=== PATIENT | male | born 1940 | race Caucasian/White ===

== ENCOUNTER 2017-11-13 13:34 | Inpatient (IN) ==
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
[2017-11-13 14:44] LABS: Hematocrit 40.4 % (42.0-52.0); Hemoglobin 13.9 gm/dL (13.5-18.0); Mean Cell Volume 88.6 fl (78-100); Mean Corpuscular Hemoglobin 30.5 pg (27-31); Mean Corpuscular Hgb Conc 34.4 g/dl (32-36); Mean Platelet Volume 9.1 fl (8-11.3); Neutrophil # 6.7 K/mm3 (1.3-6.0); Neutrophil % 78.1 % (42-75.0); Platelet Count 275 K/mm3 (150-450); Red Blood Count 4.56 M/mm3 (4.7-6.0); Red Cell Distribution Width 14.1 % (11.5-14.0); White Blood Count 8.6 K/mm3 (4.0-10.5)
[2017-11-13 14:56] LABS: Prothrombin Time (Patient) 10.7 Seconds (9.0-11.0)
[2017-11-13 14:57] LABS: INR 1.07 INR (0.90-1.10); Partial Thrombolplastin Time 27.5 Seconds (24-32)
[2017-11-13 15:25] LABS: Albumin * 3.6 gm/dl (3.4-5.0); BUN/Creatinine Ratio 14.7 (9.0-21.6); Ca. Corrected For Albumin 9.5 mg/dL (8.4-10.2); Calcium * 9.5 mg/dL (7.9-10.9); Total Protein 7.6 gm/dL (6.2-8.2)
[2017-11-13 15:38] LABS: Anion Gap 15.4 mmol/L (6.8-13.8); Bilirubin, Total 0.7 mg/dL (0.0-1.1); Carbon Dioxide 24.1 mmol/L (24-32.6); Potassium 3.5 mmol/L (3.4-4.6)
--- NOTE | 2017-11-13 21:23 | HP ---
Chief Complaint - Chief Complaint Date of Service: 11/13/17 Time of Service: 21:22 Chief Complaint: 'Slurry speech'. Source of HPI- Pt unreliable, ERP report/ notes. History of Present Illness: Mr. Fuller is a 77-yr-old WM pt with a PMH of: BPH, CVA, Depression, HTN, HLD. History is limited from the pt due to difficulty with speech and no family member is present at bedside. Pt was brought to the ED apparently with complaints of slurred speech for the past 2 days. Pt is able to relay that he has felt weak and could not get out of bed this morning by himself. At the ED labwork involving CBC & BMP were mostly unremarkable. The CXR did not have any acute findings. The Head CT showed a new 12.7mm hypodense lesion within the left thalamus which had concerns for Ischemia/infarct. Pt was past the 4 hour window for TPA administration. Of-note pt was admitted to [facility] in October 2014 for RT sided weakness and was determined to have CVA in the LT thalamus. He was started on Aspirin 81 mg daily, Lisinopril 40 mg b.i.d and Crestor 10 mg daily, but according to pt's niece, he never filled these prescriptions. He was discharge to [facility] inpatient rehabilitation. Pt will be admitted for further imaging, Neurological & telemetry monitoring and to coordinate rehabilitation care. - Patient's Past Medical History Patient History - Medical: Other - BPH Patient History - Cardiac/Respiratory: CVA/Stroke, Hypertension, Hyperlipidemia Patient History - Cancer: No Hx of Cancer Patient History - Surgical Procedures: Other Patient History - Other: None - Family History Mother Family History - Medical: , No pertinent hx, Diabetes Type 2 Family History - Cardiac/Respiratory: No pertinent hx Father Family History - Medical: , Diabetes Type 2 Family History - Cardiac/Respiratory: Coronary Heart Disease, CVA/Stroke, Hypertension, Myocardial Infarction Family History - Cancer: Cervical, Lymphoma - Social History Living Situations: home Abuse History: No History of abuse Psych History: No pertinent hx Smoking Status: Never smoker Have you smoked in the past 12 months: No Do you dip or chew tobacco: No Alcohol Use: none Drug Use: none - Immunizations Immunizations Up to Date: Yes Hx Pneumococcal Vaccination: More Information Required to Determine History of Influenza Vaccine: More Information Required to Determine Review Of Systems (GEN) - Review of Systems Additional Comments: ROS unobtainable due to pt limitation with speech. Allergies/Adverse Reactions: Allergies Allergy/AdvReac Type Severity Reaction Status Date / Time No Known Allergies Allergy Verified 11/13/17 13:49 Home Medications: HOME MEDICATIONS NK [No Home Medication] 11/13/17 [Last Taken Unknown] Exam - Exam Vital Signs: Vital Signs - Last Taken Temp 36.6 C 11/13/17 19:57 Pulse 91 11/13/17 19:57 Resp 20 11/13/17 19:57 BP 120/76 11/13/17 19:57 Pulse Ox 95 11/13/17 19:57 Constitutional: Present: Alert, Oriented x3, Cooperative, No distress ENT Exam: Present: normal ENT inspection, dry mucous membranes Eye Exam: bilateral eye: normal inspection, PERRL Neck: Present: non-tender, full range of motion, supple Back Exam: Present: normal inspection, no CVA tenderness Breasts: Present: Exam deferred Respiratory: Present: chest non-tender, No rales, No wheezing Cardiovascular/Chest: Present: normal peripheral pulses, regular rate, rhythm, no chest tenderness Abdomen: Present: Normal bowel sounds, soft, nontender /Rectal: Present: Exam deferred Extremity: Present: normal range of motion, non-tender, normal inspection Skin Exam: Present: warm/dry, no cyanosis Lymphatic: Present: no adenopathy Neurologic: Present: no motor/sensory deficits, alert, normal mood/affect, oriented x 3, aphasia, facial droop - LT sided, other - Muscle strength 5/5 on BLE and BUE Appearance: Present: impaired insight Eye contact: Present: decreased rate of speech - slurred. Thoughts: Present: normal thought pattern, no apparent hallucination Diagnostic Studies: Laboratory Results WBC 8.6 K/mm3 (4.0-10.5) 11/13/17 14:40 RBC 4.56 M/mm3 (4.7-6.0) L 11/13/17 14:40 Hgb 13.9 gm/dL (13.5-18.0) 11/13/17 14:40 Hct 40.4 % (42.0-52.0) L 11/13/17 14:40 MCV 88.6 fl (78-100) 11/13/17 14:40 MCH 30.5 pg (27-31) 11/13/17 14:40 MCHC 34.4 g/dl (32-36) 11/13/17 14:40 RDW 14.1 % (11.5-14.0) H 11/13/17 14:40 Plt Count 275 K/mm3 (150-450) 11/13/17 14:40 MPV 9.1 fl (8-11.3) 11/13/17 14:40 Immature Gran % (Auto) 0.50 % (0.001-0.429) H 11/13/17 14:40 Immature Gran # (Auto) 0.04 K/mm3 (0.000-0.0310) H 11/13/17 14:40 Neutrophils % 78.1 % (42-75.0) H 11/13/17 14:40 Lymphocytes % 12.9 % (20-51) L 11/13/17 14:40 Monocytes % 8.3 % (0.0-9) 11/13/17 14:40 Eosinophils % 0.0 % (0.0-3.0) 11/13/17 14:40 Basophils % 0.2 % (0.0-1.0) 11/13/17 14:40 Nucleated RBC % 0.0 k/mm3 (0-1) 11/13/17 14:40 Neutrophils # 6.7 K/mm3 (1.3-6.0) H 11/13/17 14:40 Lymphocytes # 1.11 k/mm3 (1.5-3.5) L 11/13/17 14:40 Monocytes # 0.7 k/mm3 (0.0-1.0) 11/13/17 14:40 Eosinophils # 0.0 k/mm3 (0.0-0.7) 11/13/17 14:40 Absolute Basophils 0.0 k/mm3 (0.0-0.1) 11/13/17 14:40 ESR 29 mm/hr (0-10) H 11/13/17 14:40 PT 10.7 Seconds (9.0-11.0) 11/13/17 14:40 INR (Anticoag Therapy) 1.07 INR (0.90-1.10) 11/13/17 14:40 PTT (Isaias) 27.5 Seconds (24-32) 11/13/17 14:40 Sodium 141 mmol/L (132-142) 11/13/17 14:40 Plasma Sodium 141 mmol/L (130-142) 11/13/17 14:40 Potassium 3.5 mmol/L (3.4-4.6) 11/13/17 14:40 Chloride 105 mmol/L (97-106) 11/13/17 14:40 Carbon Dioxide 24.1 mmol/L (24-32.6) 11/13/17 14:40 Anion Gap 15.4 mmol/L (6.8-13.8) H 11/13/17 14:40 BUN 15 mg/dL (6-23) 11/13/17 14:40 Creatinine 1.02 mg/dL (0.4-1.4) 11/13/17 14:40 Est GFR (Non-Af Amer) 75 mL/min (60-130) 11/13/17 14:40 BUN/Creatinine Ratio 14.7 (9.0-21.6) 11/13/17 14:40 Random Glucose 80 mg/dL (70-110) 11/13/17 14:40 Calcium 9.5 mg/dL (7.9-10.9) 11/13/17 14:40 Calcium Adj for Albumin 9.5 mg/dL (8.4-10.2) 11/13/17 14:40 Magnesium 2.0 mg/dL (1.2-2.8) 11/13/17 14:40 Total Bilirubin 0.7 mg/dL (0.0-1.1) 11/13/17 14:40 AST 51 U/L (0-48) H 11/13/17 14:40 ALT 29 U/L (19-67) 11/13/17 14:40 Alkaline Phosphatase 83 U/L (50-170) 11/13/17 14:40 Total Protein 7.6 gm/dL (6.2-8.2) 11/13/17 14:40 Albumin 3.6 gm/dl (3.4-5.0) 11/13/17 14:40 Assessment/Plan - Assessment/Plan (1) CVA (cerebral vascular accident) Assessment: Pt is a 77-yr-old WM who presented with neurological deficit involving weakness and slurry speech. On exam, he has RT side facial drooping. The head CT showed a new 12.7mm hypodense lesion within the left thalamus which had concerns for Ischemia/infarct. He could not get treatment with TPA due to symptom onset that was already outside the 4 hour window. He will need additional imaging to define etiology of the stroke with MRA, Carotid US and echocardiogram. He will remain on telemetry monitoring to determine if arrhythmia such as A -fib was contributory. Will hold off antihypertensives unless he SBP> 220 or DPB> 120. He will need formal swallowing evaluation prior to oral intake, encourage early mobilization and also needs supported discharge planning with rehabilitation goals - consult PT/OT, case mgt will assist with placement finding. Problem: Acute Qualifiers: CVA mechanism: unspecified Qualified Code(s): I63.9 - Cerebral infarction, unspecified (2) Poor compliance with medication Assessment: Pt has reportedly not been taking his medications. Problem: Acute (3) HTN (hypertension) Problem: Chronic Qualifiers: Hypertension type: essential hypertension Qualified Code(s): I10 - Essential (primary) hypertension (4) Depression Problem: Chronic (5) HLD (hyperlipidemia) Problem: Chronic
[2017-11-14 02:49] LABS: Urine Bilirubin Negative (NEGATIVE); Urine Blood Negative /ul (NEGATIVE); Urine Ketone 15 mg/dL (NEGATIVE); Urine Nitrite Negative (NEGATIVE); Urine Protein Negative (NEGATIVE); Urine Urobilinogen Normal (NORMAL)
[2017-11-14 02:55] LABS: Urine Appearance Clear (CLEAR); Urine Color Dark Yellow
[2017-11-14 02:56] LABS: Urine Bacteria TRACE; Urine RBC None Seen /hpf (0-5); Urine WBC None Seen /hpf (0-5)
--- NOTE | 2017-11-14 06:20 | PN ---
Subjective - Date and Time Seen Date: 11/14/17 Time: 06:16 Subjective Narrative: Pt seen this morning. Slurred speech still persist and noted to have LT sided facial drooping and LT hand weakness. No other acute events overnight. Objective - Vitals Vitals: Last Vital Signs Temp 37.0 C 11/13/17 23:34 Pulse 79 11/14/17 02:00 Resp 20 11/13/17 23:34 BP 160/82 11/13/17 23:34 Pulse Ox 94 11/13/17 23:34 - Exam Constitutional: Present: Alert, Oriented x3, Cooperative, No distress ENT Exam: Present: normal ENT inspection, hard of hearing Neck: Present: non-tender, full range of motion, supple Breasts: Present: Exam deferred Respiratory: Present: No rales, No wheezing Cardiovascular/Chest: Present: normal peripheral pulses, regular rate, rhythm, no chest tenderness Abdomen: Present: Normal bowel sounds, soft, nontender /Rectal: Present: Exam deferred Extremity: Present: normal range of motion, non-tender, normal inspection Skin Exam: Present: warm/dry, no cyanosis Lymphatic: Present: no adenopathy Neurologic: Present: no motor/sensory deficits, alert, oriented x 3, aphasia, facial droop - lt sided, other - muscle strength LUE- 3/5, and RUE -5/5 Appearance: Present: appropriate appearance Eye contact: Present: cooperative, good eye contact, decreased rate of speech Thoughts: Present: no apparent hallucination Assessment/Plan - Problems/Diagnosis (1) CVA (cerebral vascular accident) Problem: Acute Qualifiers: CVA mechanism: unspecified Qualified Code(s): I63.9 - Cerebral infarction, unspecified Narrative: Pt is a 77-yr-old WM who presented with neurological deficit involving weakness and slurry speech. On exam, he has RT side facial drooping. The head CT showed a new 12.7mm hypodense lesion within the left thalamus which had concerns for Ischemia/infarct. He could not get treatment with TPA due to symptom onset that was already outside the 4 hour window. He will need additional imaging to define etiology of the stroke with MRA, Carotid US and echocardiogram. He will remain on telemetry monitoring to determine if arrhythmia such as A -fib was contributory. Will hold off antihypertensives unless he SBP> 220 or DPB> 120. He will need formal swallowing evaluation prior to oral intake, encourage early mobilization and also needs supported discharge planning with rehabilitation goals - consult PT/OT, case mgt will assist with placement finding. (2) Poor compliance with medication Problem: Acute Narrative: Pt has reportedly not been taking his medications. (3) HTN (hypertension) Problem: Chronic Qualifiers: Hypertension type: essential hypertension Qualified Code(s): I10 - Essential (primary) hypertension (4) Depression Problem: Chronic (5) HLD (hyperlipidemia) Problem: Chronic
[2017-11-14] MEDS: ENOXAPARIN SODIUM 40 MG/0.4 ML SYRG SC SCH (13:38)
[2017-11-14] MEDS: ASPIRIN 325 MG TABLET.DR PO SCH (13:38)
[2017-11-14] MEDS: LISINOPRIL 10 MG TABLET PO SCH (13:39)
[2017-11-14] MEDS ORDERED: ROSUVASTATIN CALCIUM 10 MG TABLET PO SCH (21:00)
--- NOTE | 2017-11-15 05:20 | PN ---
Subjective - Date and Time Seen Date: 11/15/17 Time: 05:13 Subjective Narrative: Pt seen this am. No issues overnight according to nursing. Seen and eval by ST.PT/OT. Awaiting on rehabilitation placement. Objective - Vitals Vitals: Last Vital Signs Temp 37.2 C 11/14/17 21:00 Pulse 72 11/14/17 21:58 Resp 20 11/14/17 21:00 BP 147/82 11/14/17 21:00 Pulse Ox 97 11/14/17 21:00 - Exam Constitutional: Present: Alert, Oriented x3, Cooperative, No distress ENT Exam: Present: normal ENT inspection, hard of hearing Neck: Present: non-tender, full range of motion, supple Breasts: Present: Exam deferred Respiratory: Present: No rales, No wheezing Cardiovascular/Chest: Present: normal peripheral pulses, regular rate, rhythm, no murmur Abdomen: Present: Normal bowel sounds, soft, nontender /Rectal: Present: Exam deferred Extremity: Present: normal range of motion, non-tender, normal inspection, other - lt side weakness Skin Exam: Present: warm/dry, no cyanosis Lymphatic: Present: no adenopathy Neurologic: Present: alert, aphasia, facial droop - LT side Appearance: Present: appropriate appearance Eye contact: Present: cooperative, good eye contact, decreased rate of speech Thoughts: Present: no apparent hallucination Assessment/Plan - Problems/Diagnosis (1) CVA (cerebral vascular accident) Problem: Acute Qualifiers: CVA mechanism: unspecified Qualified Code(s): I63.9 - Cerebral infarction, unspecified Narrative: 11/13 Pt is a 77-yr-old WM who presented with neurological deficit involving weakness and slurry speech. On exam, he has RT side facial drooping. The head CT showed a new 12.7mm hypodense lesion within the left thalamus which had concerns for Ischemia/infarct. He could not get treatment with TPA due to symptom onset that was already outside the 4 hour window. He will need additional imaging to define etiology of the stroke with MRA, Carotid US and echocardiogram. He will remain on telemetry monitoring to determine if arrhythmia such as A -fib was contributory. Will hold off antihypertensives unless he SBP> 220 or DPB> 120. He will need formal swallowing evaluation prior to oral intake, encourage early mobilization and also needs supported discharge planning with rehabilitation goals - consult PT/OT, case mgt will assist with placement finding. 11/14 MRI Brain results--> Acute lacunar infarct on RT side of connie and chronic lacunar infarct within the LT thalamus. Carotid Duplex --> Mild bilateral carotid plaque. Speech Therapy evaluation: Dysphagia diet recommended with [facility]. soft and nectar thick liquids PT/OT- Will need continued rehabilitation to work on mobility and independence, Pt will be started on Aspirin 325 mg daily, Lisinopril 10 mg, and Crestor.- Pt refusing crestor. will be started on Artorvastatin at discharge. (2) Poor compliance with medication Problem: Acute (3) HTN (hypertension) Problem: Chronic Qualifiers: Hypertension type: essential hypertension Qualified Code(s): I10 - Essential (primary) hypertension (4) Depression Problem: Chronic (5) HLD (hyperlipidemia) Problem: Chronic
[2017-11-15] MEDS: LISINOPRIL 10 MG TABLET PO SCH (08:19)
[2017-11-15] MEDS: ASPIRIN 325 MG TABLET.DR PO SCH (08:20)
[2017-11-15] MEDS: ENOXAPARIN SODIUM 40 MG/0.4 ML SYRG SC SCH (11:25)
--- NOTE | 2017-11-16 05:06 | PN ---
Subjective - Date and Time Seen Date: 11/16/17 Time: 05:05 Subjective Narrative: Pt examined this am. He has no complaints. No acute events overnight according to nursing. Awaiting on placement. Objective - Vitals Vitals: Last Vital Signs Temp 37.0 C 11/15/17 22:11 Pulse 69 11/15/17 22:11 Resp 16 11/15/17 22:11 BP 164/81 11/15/17 22:11 Pulse Ox 96 11/15/17 22:11 - Exam Constitutional: Present: Alert, Oriented x3, Cooperative, No distress ENT Exam: Present: normal ENT inspection, hard of hearing Neck: Present: non-tender, full range of motion, supple Breasts: Present: Exam deferred Respiratory: Present: lungs clear Cardiovascular/Chest: Present: normal peripheral pulses, regular rate, rhythm Abdomen: Present: Normal bowel sounds, soft, nontender /Rectal: Present: Exam deferred Extremity: Present: other - LT side weakness Skin Exam: Present: warm/dry, no cyanosis Neurologic: Present: alert, aphasia, facial droop Appearance: Present: appropriate appearance, appropriate insight Eye contact: Present: cooperative, good eye contact, decreased rate of speech Thoughts: Present: no apparent hallucination Assessment/Plan - Problems/Diagnosis (1) CVA (cerebral vascular accident) Problem: Acute Qualifiers: CVA mechanism: unspecified Qualified Code(s): I63.9 - Cerebral infarction, unspecified Narrative: 11/13 Pt is a 77-yr-old WM who presented with neurological deficit involving weakness and slurry speech. On exam, he has RT side facial drooping. The head CT showed a new 12.7mm hypodense lesion within the left thalamus which had concerns for Ischemia/infarct. He could not get treatment with TPA due to symptom onset that was already outside the 4 hour window. He will need additional imaging to define etiology of the stroke with MRA, Carotid US and echocardiogram. He will remain on telemetry monitoring to determine if arrhythmia such as A -fib was contributory. Will hold off antihypertensives unless he SBP> 220 or DPB> 120. He will need formal swallowing evaluation prior to oral intake, encourage early mobilization and also needs supported discharge planning with rehabilitation goals - consult PT/OT, case mgt will assist with placement finding. 11/14 MRI Brain results--> Acute lacunar infarct on RT side of connie and chronic lacunar infarct within the LT thalamus. Carotid Duplex --> Mild bilateral carotid plaque. Speech Therapy evaluation: Dysphagia diet recommended with [facility]. soft and nectar thick liquids PT/OT- Will need continued rehabilitation to work on mobility and independence, Pt will be started on Aspirin 325 mg daily, Lisinopril 10 mg, and Crestor.- Pt refusing crestor. will be started on Artorvastatin at discharge. (2) Poor compliance with medication Problem: Acute (3) HTN (hypertension) Problem: Chronic Qualifiers: Hypertension type: essential hypertension Qualified Code(s): I10 - Essential (primary) hypertension (4) Depression Problem: Chronic (5) HLD (hyperlipidemia) Problem: Chronic
[2017-11-16] MEDS: ASPIRIN 325 MG TABLET.DR PO SCH (08:29)
[2017-11-16] MEDS: LISINOPRIL 10 MG TABLET PO SCH (08:29)
[2017-11-16] MEDS: POLYETHYLENE GLYCOL 3350 119 GM BTL PO SCH (08:35)
[2017-11-16] MEDS: ENOXAPARIN SODIUM 40 MG/0.4 ML SYRG SC SCH (12:05)
--- NOTE | 2017-11-17 05:12 | PN ---
Subjective - Date and Time Seen Date: 11/17/17 Time: 05:12 Subjective Narrative: Pt examined this am. No complaints. No acute events overnight. Awaiting on placement. Objective - Vitals Vitals: Last Vital Signs Temp 36.8 C 11/16/17 21:00 Pulse 82 11/16/17 21:00 Resp 18 11/16/17 21:00 BP 154/83 11/16/17 21:00 Pulse Ox 97 11/16/17 21:00 - Exam Constitutional: Present: Alert, Oriented x3, No distress ENT Exam: Present: normal ENT inspection Neck: Present: non-tender, full range of motion, supple Breasts: Present: Exam deferred Respiratory: Present: No rales, No wheezing Cardiovascular/Chest: Present: normal peripheral pulses, regular rate, rhythm, no chest tenderness Abdomen: Present: Normal bowel sounds, soft, nontender /Rectal: Present: Exam deferred Extremity: Present: normal range of motion, non-tender, normal inspection, other - lt side weakness Skin Exam: Present: warm/dry Lymphatic: Present: no adenopathy Neurologic: Present: alert, oriented x 3, aphasia, facial droop Appearance: Present: appropriate appearance, appropriate insight Eye contact: Present: cooperative, good eye contact, decreased rate of speech Thoughts: Present: no apparent hallucination Assessment/Plan - Problems/Diagnosis (1) CVA (cerebral vascular accident) Problem: Acute Qualifiers: CVA mechanism: unspecified Qualified Code(s): I63.9 - Cerebral infarction, unspecified Narrative: 11/13 Pt is a 77-yr-old WM who presented with neurological deficit involving weakness and slurry speech. On exam, he has RT side facial drooping. The head CT showed a new 12.7mm hypodense lesion within the left thalamus which had concerns for Ischemia/infarct. He could not get treatment with TPA due to symptom onset that was already outside the 4 hour window. He will need additional imaging to define etiology of the stroke with MRA, Carotid US and echocardiogram. He will remain on telemetry monitoring to determine if arrhythmia such as A -fib was contributory. Will hold off antihypertensives unless he SBP> 220 or DPB> 120. He will need formal swallowing evaluation prior to oral intake, encourage early mobilization and also needs supported discharge planning with rehabilitation goals - consult PT/OT, case mgt will assist with placement finding. 11/14 MRI Brain results--> Acute lacunar infarct on RT side of connie and chronic lacunar infarct within the LT thalamus. Carotid Duplex --> Mild bilateral carotid plaque. Speech Therapy evaluation: Dysphagia diet recommended with [facility] [place] [facility]. soft and nectar thick liquids PT/OT- Will need continued rehabilitation to work on mobility and independence, Pt will be started on Aspirin 325 mg daily, Lisinopril 10 mg, and Crestor.- Pt refusing crestor. will be started on Artorvastatin at discharge. (2) Poor compliance with medication Problem: Acute (3) HTN (hypertension) Problem: Chronic Qualifiers: Hypertension type: essential hypertension Qualified Code(s): I10 - Essential (primary) hypertension (4) Depression Problem: Chronic (5) HLD (hyperlipidemia) Problem: Chronic
[2017-11-17] MEDS: POLYETHYLENE GLYCOL 3350 119 GM BTL PO SCH (09:03)
[2017-11-17] MEDS: ASPIRIN 325 MG TABLET.DR PO SCH (09:03)
[2017-11-17] MEDS: LISINOPRIL 10 MG TABLET PO SCH (09:04)
--- NOTE | 2017-11-17 09:23 | DS ---
(1) Ischemic stroke Problem: Acute Description of Stay: ADMISSION DATE: 11/13/2017 DISCHARGE DATE: 11/17/2017 ADMISSION HPI by LALI Sifuentes: Mr. Fuller is a 77-yr-old WM pt with a PMH of: BPH, CVA, Depression, HTN, HLD. History is limited from the pt due to difficulty with speech and no family member is present at bedside. Pt was brought to the ED apparently with complaints of slurred speech for the past 2 days. Pt is able to relay that he has felt weak and could not get out of bed this morning by himself. At the ED labwork involving CBC & BMP were mostly unremarkable. The CXR did not have any acute findings. The Head CT showed a new 12.7mm hypodense lesion within the left thalamus which had concerns for Ischemia/infarct. Pt was past the 4 hour window for TPA administration. Of-note pt was admitted to [facility] in October 2014 for RT sided weakness and was determined to have CVA in the LT thalamus. He was started on Aspirin 81 mg daily, Lisinopril 40 mg b.i.d and Crestor 10 mg daily, but according to pt's niece, he never filled these prescriptions. He was discharge to [facility] inpatient rehabilitation. Pt will be admitted for further imaging, Neurological & telemetry monitoring and to coordinate rehabilitation care. HOSPITAL COURSE: The patient was admitted to the hospital for an acute/subacute ischemic stroke involving the right side of the connie. The patient continues to have residual deficits including dysphagia, facial droop and left upper and lower extremity weakness. The patient was evaluated by speech therapy with recommendations for a mechanical soft diet with nectar thick liquids. Overall, the patients admission was uneventful and he will be discharged to a SNF for ongoing therapies. FOLLOW-UP APPOINTMENTS: -Dr. Nation will follow-up with the patient at [facility] within the next 2 weeks -Outpatient referral to [facility] for a right AFO NEW OR CHANGED MEDICATIONS: -Aspirin 325mg PO daily -Atorvastatin 20mg PO QHS -Lisinopril 10mg PO daily DISCONTINUED MEDICATIONS: -None RADIOLOGY REPORTS: Single view chest x-ray on 11/13/2017: Hypoventilatory changes. No focal acute finding. CT head without contrast on 11/13/2017: There is a new 12.7 mm hypodense lesion within the left thalamus/posterior limb of the left internal capsule. Consider potential area of ischemia/infarct, age indeterminate. B chronic but consider acute versus subacute infarct. Consider follow-up by MRI of the brain. No evidence for intracranial hemorrhage or mass effect. MRI of the brain with and without contrast on 11/14/2017: 1. Mild cortical atrophy with moderate ischemic small vessel disease 2. Small amount of chronic ischemia within the mid right periventricular white matter. 3. Chronic lacunar infarct within the posterior left basal ganglia/thalamus. 4. Acute lacunar infarct along the right side of the connie. There is an additional small chronic lacunar infarct in the middle of the connie at this level. Bilateral carotid duplex ultrasound on 11/14/2017: Mild bilateral carotid plaque without evidence for hemodynamic significant stenosis. Normal antegrade flow in the vertebral arteries. Procedures Performed: none Discharge Location: [facility] Disposition: SNF Condition: Stable Level of Care: SNF Discharge Activity: Activity as tolerated Discharge Diet: Mech soft, Other - mechanical soft diet with nectar thick liquids [facility] Therapy: Physicial Therapy, Occupation Therapy, Speech Therapy Referrals: Wenceslao Lawson MD [Primary Care Provider] - Additional Patient Instructions (free text): -Dr. Nation will follow-up with the patient at [facility] within the next 2 weeks -Outpatient referral to [facility] for a right AFO Prescriptions (Any new or edited meds): Aspirin [Aspirin Enteric Coated] 325 mg PO DAILY #30 tablet. Atorvastatin Calcium 20 mg PO HS #30 tablet Lisinopril [Zestril] 10 mg PO DAILY #30 tablet Complete Home Medications List: Complete Home Medication List: Aspirin [Aspirin Enteric Coated] 325 mg PO DAILY #30 tablet. 11/17/17 Atorvastatin Calcium 20 mg PO HS #30 tablet 11/17/17 Lisinopril [Zestril] 10 mg PO DAILY #30 tablet 11/17/17
[2017-11-17 11:22] VITALS: BP 159/85
== END 2017-11-17 11:30 | DRG 65 ==
LOC: ER 13:34 → MS 15:02 → OBSVTOIN 15:29
PROVIDERS: ADMIT Internal Medicine; ATTEND Internal Medicine
DX: I10 Essential (primary) hypertension; E78.5 Hyperlipidemia, unspecified; R29.810 Facial weakness; I63.9 Cerebral infarction, unspecified; G81.94 Hemiplegia, unspecified affecting left nondominant side; R13.10 Dysphagia, unspecified; N40.0 Benign prostatic hyperplasia without lower urinary tract symptoms
CPT/HCPCS: 36415; 70450; 70553; 71010; 71045; 80053; 81001; 83735; 85025; 85610; 85652; 85730; 92610; 93005; 93880; 97110; 97116; 97161; 97166; 97535; 99283

== ENCOUNTER 2018-01-07 15:51 | Observation (INO) ==
[2018-01-07 16:39] LABS: Hematocrit 39.9 % (42.0-52.0); Hemoglobin 13.5 gm/dL (13.5-18.0); Mean Cell Volume 90.7 fl (78-100); Mean Corpuscular Hemoglobin 30.7 pg (27-31); Mean Corpuscular Hgb Conc 33.8 g/dl (32-36); Mean Platelet Volume 8.9 fl (8-11.3); Neutrophil # 3.7 K/mm3 (1.3-6.0); Neutrophil % 62.5 % (42-75.0); Platelet Count 254 K/mm3 (150-450); Red Cell Distribution Width 14.6 % (11.5-14.0)
--- NOTE | 2018-01-07 16:40 | ERNOTE ---
Medical Problem HPI - General Chief Complaint: General Assessment Time Seen by Provider: 01/07/18 15:51 Source: patient, EMS Exam Limitations: clinical condition - Immun/Allergies/Home Medications Immunizations: IMMUNIZATION HX Immunizations Up to Date Yes History of Influenza Vaccine No Hx Pneumococcal Vaccination No Allergies/Adverse Reactions: Allergies poison sumac extract Allergy (Unknown, Verified 01/07/18 16:02) RASH Home Medications: HOME MEDICATIONS Aspirin [Aspirin Enteric Coated] 325 mg PO DAILY #30 tablet. 11/17/17 [Last Taken Unknown] sertraline 50 mg tablet 50 mg PO DAILY #30 tab 12/22/17 [Last Taken Unknown] Atorvastatin Calcium 40 mg PO HS 01/07/18 [Last Taken Unknown] Lisinopril [Zestril] 10 mg PO DAILY 01/07/18 [Last Taken Unknown] - History of Present History Narrative: Patient states that he had a stroke six years ago and another one before that . He never completely recovered from the stroke, walks some with his walker. Except for slightly increased generalized weakness he denies any new symptoms, no vision changes, slightly slurred speech at baseline. Apparently the family was concerned about another stroke wit increased weakness since yesterday morning Review of Systems - Review of Systems Constitutional: Absent: recent illness, fever EYE: Absent: vision changes ENT: Present: no symptoms reported Respiratory: Absent: shortness of breath Cardiology: Absent: chest pain Gastrointestinal/Abdominal: Absent: nausea, abdominal pain Genitourinary: Present: no symptoms reported Neurological: Present: See HPI. Absent: headache Medical History (Last Reviewed 01/07/18 @ 16:45 by Gypsy Feliciano MD) BPH with urinary obstruction Onset Date: Unknown CVA (cerebral vascular accident) Onset Date: ~2017 Depression Onset Date: Unknown Hearing loss Onset Date: Unknown Hyperlipidemia Onset Date: Unknown Hypertension Onset Date: Unknown Surgical History: Surgical History (Last Reviewed 01/07/18 @ 16:45 by Gypsy Feliciano MD) Colonoscopy planned Onset Date: ~2010 History of cataract surgery Onset Date: ~2013 Lipoma Onset Date: ~1973 Family History: Family History (Last Updated 12/24/17 @ 16:51 by Adamaris Gee RN) Father Myocardial infarction Prostate disease Mother Cancer Glaucoma Social History: Preferred Language Vincentian Do you have any methodist or No cultural preference? Smoking Status Never smoker Have you smoked in the past 12 No months Do you dip or chew tobacco No Abuse History No History of abuse Psych History No pertinent hx Alcohol Use none Drug Use none Physical Exam - Physical Exam General Appearance: Present: wd/wn, alert, no apparent distress Head Exam: Present: normal inspection Eye Exam: Normal inspection: bilateral, PERRL: bilateral, EOMI: bilateral Ears, Nose, Throat: Present: normal ENT inspection, normal pharynx Respiratory: Present: no respiratory distress, normal breath sounds, lungs clear Cardiovascular/Chest: Present: regular rate, rhythm, no murmur Gastrointestinal/Abdominal: Present: nontender, nondistended Extremity Exam: Present: no edema Neurological Exam: Present: alert, oriented, normal mood/affect, no motor/ sensory deficits, youth care professional II-XII nml as tested - except left facial droop, normal cerebellar test - minimal intension tremor Skin Exam: Present: normal color, warm/dry ED Progress - Results and Orders Patient's Lab Results:: I have reviewed the patient's lab results. - Vital Signs Patient's Vital Signs:: I have reviewed the patient's vital signs. Vital Signs: Vital Signs 01/07/18 15:55 Temperature 37.6 C Pulse Rate 76 Respiratory Rate 22 H Blood Pressure 176/93 H O2 Sat by Pulse Oximetry 97 - X-Ray X-Ray #1 X-Ray: chest - no acute changes Interpretation: Reviewed by me - CT/Ultrasound CT/Ultrasound Narrative: CT head: atrophy, no acute changes - Progress/Reassessment Chief Complaint: General Assessment Progress Note-Subjective: 01/07/18 17:01 discussed test results with patient, alert and comfortable 01/07/18 17:10 discussed with brother and [id number], patient was in rehab at [facility] until two weeks ago, has been doing well with home health and home PT, family is stopping by frequently and helping with laundry and shopping, noticed significant decline the last couple of days, unable to trasnfer and get around by himself 01/07/18 17:30 patient unable to stand safely, able to walk a couple of steps only with two people assist will admit for evaluation and placement, patient agrees to plan family updated 01/07/18 17:[address] Azevedo 01/07/18 18:08 discussed with lalita Cardoso to admit for observation for generalized weakness Departure Clinical Impression: Weakness due to cerebrovascular accident - Departure Disposition: Still a patient Condition: Stable
[2018-01-07 16:46] LABS: Prothrombin Time (Patient) 10.9 Seconds (9.0-11.0)
[2018-01-07 16:47] LABS: INR 1.09 INR (0.90-1.10); Partial Thrombolplastin Time 24.7 Seconds (24-32)
[2018-01-07 16:51] LABS: Albumin * 3.7 gm/dl (3.4-5.0); Anion Gap 12.3 mmol/L (6.8-13.8); BUN/Creatinine Ratio 13.5 (9.0-21.6); Bilirubin, Total 0.3 mg/dL (0.0-1.1); Ca. Corrected For Albumin 9.6 mg/dL (8.4-10.2); Calcium * 9.7 mg/dL (7.9-10.9); Carbon Dioxide 25.5 mmol/L (24-32.6); Potassium 3.8 mmol/L (3.4-4.6); Total Protein 7.8 gm/dL (6.2-8.2)
[2018-01-07 17:34] LABS: Urine Bilirubin Negative (NEGATIVE); Urine Blood Negative /ul (NEGATIVE); Urine Ketone Negative (NEGATIVE); Urine Nitrite Negative (NEGATIVE); Urine Protein Negative (NEGATIVE); Urine Specific Gravity <=1.005 SP.GR. (1.005-1.030); Urine Urobilinogen Normal (NORMAL); Urine pH 5.5 pH (5.0-7.0)
[2018-01-07 17:52] LABS: Urine Appearance Clear (CLEAR); Urine Bacteria None Seen; Urine Color Yellow; Urine RBC None Seen /hpf (0-5); Urine Squamous Epithelial Cell None Seen /hpf; Urine Transitional Epi Cells None Seen /hpf; Urine WBC None Seen /hpf (0-5)
--- NOTE | 2018-01-07 20:11 | HP ---
Chief Complaint - Chief Complaint Date of Service: 01/07/18 Time of Service: 20:10 Chief Complaint: " Weakness". Source of HPI- Pt; reliable, ERP notes, Pt's EMR. History of Present Illness: Mr. Fuller is a 77-yr-old WM pt with a PMH of: BPH, CVA, Depression, HTN, HLD. Pt was brought to the ED by the EMS due to concerns by family/Niece that he may have had another stroke due to the weakness and inability to get up from his bed. Pt states that he was okay until yesterday (01/07) when he noticed that he was more weaker. Pt denies fevers, chill, n/v, diarrhea, abdominal pain , coughing and SOB. He also denies unilateral weakness. He has slurred speech but this was present in the previous admission on 11/13, when he presented with this finding and a head CT had shown concerns for Ischemia/Infarct. A follow- up with an MRI showed Acute Lacunar infarct on the RT side of the connie.He continued to have neurological deficits involving dysphagia, facial drooping and left upper and lower extremities. He was evaluated by the speech who recommended mechanical soft diet with thick nectar liquids. He was discharged to SNF for continued rehabilitation therapy and restarted on Atorvastatin 20mg daily, Lisinopril 10 mg daily & Aspirin 325 mg daily. Of -note, pt has had nonadherence to medication regimen following admission for CVA in October 2014. According to jayleen, pt never filled the prescriptions of Aspirin Lisinopril & Crestor after discharge from the [facility] inpatient rehabilitation. Niece reported that he also did not take prescribed artovastatin following discharge from [facility] admission in 10/2017 and there is uncertainty of he was taking lisinopril and Aspirin as well. At the ED tonight, the labwork involving CBC, BMP, Troponins and UA were all unremarkable. The CXR did not have any acute cardiopulmonary findings. 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 He will be admitted under for further imaging, neurological and telemetry monitoring and to coordinate rehabilitation. Medical History (Last Reviewed 01/07/18 @ 20:15 by Ayanna Mcclure RN) BPH with urinary obstruction Onset Date: Unknown CVA (cerebral vascular accident) Onset Date: ~2017 Depression Onset Date: Unknown Hearing loss Onset Date: Unknown Hyperlipidemia Onset Date: Unknown Hypertension Onset Date: Unknown Surgical History: Surgical History (Last Reviewed 01/07/18 @ 20:15 by Ayanna Mcclure RN) Colonoscopy planned Onset Date: ~2010 History of cataract surgery Onset Date: ~2013 Lipoma Onset Date: ~1973 Family History: Family History (Last Reviewed 01/07/18 @ 20:15 by Ayanna Mcclure RN) Father Myocardial infarction Prostate disease Mother Cancer Glaucoma Social History: Preferred Language Armenian Do you have any catholic or No cultural preference? Smoking Status Never smoker Have you smoked in the past 12 No months Do you dip or chew tobacco No Abuse History No History of abuse Psych History No pertinent hx Alcohol Use none Drug Use none Review Of Systems (GEN) - Review of Systems Generalized/Overall Review: Present: Weakness. Absent: Chills, Fever, Malaise EENTM: Absent: Eye Pain, Blurred Vision, Tearing Respiratory: Absent: Cough, Shortness of Breath, Orthopnea Cardiac: Absent: Chest Pain, Edema, Palpitations Abdominal: Absent: Nausea, Vomiting, Abdominal Pain, Constipation, Diarrhea Genitourinary: Absent: Burning, Itching, Urgency Musculoskeletal: Absent: Joint Pain, Back Pain, Joint Swelling Neurological: Present: Weakness. Absent: Headache, Anxiety, Depressed, Emotional Problems, Tremors Skin: Absent: Dryness, Lesions, Lumps, Rash Endocrine: Absent: Intolerance to Cold, Flushing, Increased Thirst Misc: All systems neg except as marked Immunizations: IMMUNIZATION HX Immunizations Up to Date Yes History of Influenza Vaccine No Hx Pneumococcal Vaccination No Allergies/Adverse Reactions: Allergies Allergy/AdvReac Type Severity Reaction Status Date / Time poison sumac extract Allergy Unknown RASH Verified 01/07/18 16:02 Home Medications: HOME MEDICATIONS Aspirin [Aspirin Enteric Coated] 325 mg PO DAILY #30 tablet.dr 11/17/17 [Last Taken Unknown] sertraline 50 mg tablet 50 mg PO DAILY #30 tab 12/22/17 [Last Taken Unknown] Atorvastatin Calcium 40 mg PO HS 01/07/18 [Last Taken Unknown] Lisinopril [Zestril] 10 mg PO DAILY 01/07/18 [Last Taken Unknown] Exam - Exam Vital Signs: Vital Signs - Last Taken Temp 37.6 C 01/07/18 16:01 Pulse 74 01/07/18 18:00 Resp 20 01/07/18 18:00 BP 155/83 H 01/07/18 18:00 Pulse Ox 97 01/07/18 18:00 Constitutional: Present: Alert, Oriented x3, Cooperative, No distress ENT Exam: Present: normal ENT inspection, hard of hearing Eye Exam: bilateral eye: normal inspection, PERRL Neck: Present: non-tender, full range of motion, supple Back Exam: Present: normal inspection, no CVA tenderness Breasts: Present: Exam deferred Respiratory: Present: No rales, No wheezing Cardiovascular/Chest: Present: normal peripheral pulses, regular rate, rhythm, no chest tenderness, no edema Abdomen: Present: Normal bowel sounds, soft, nontender /Rectal: Present: Exam deferred Extremity: Present: normal range of motion, non-tender, normal inspection Skin Exam: Present: warm/dry, no cyanosis Lymphatic: Present: no adenopathy Neurologic: Present: alert, oriented x 3, aphasia, facial droop - LT sided, motor weakness - Muscle strength- 4/5 RUE, 3/5 on LUE, Appearance: Present: appropriate appearance, appropriate insight Eye contact: Present: cooperative, good eye contact, decreased rate of speech Thoughts: Present: no apparent hallucination Diagnostic Studies: Abnormal Lab Results 01/07/18 01/07/18 Range/Units 16:25 Unknown RBC 4.40 L (4.7-6.0) M/mm3 Hct 39.9 L (42.0-52.0) % RDW 14.6 H (11.5-14.0) % Monocytes % 12.1 H (0.0-9) % Lymphocytes # 1.44 L (1.5-3.5) k/mm3 ESR 28 H (0-10) mm/hr Laboratory Results WBC 6.0 K/mm3 (4.0-10.5) 01/07/18 16:25 RBC 4.40 M/mm3 (4.7-6.0) L 01/07/18 16:25 Hgb 13.5 gm/dL (13.5-18.0) 01/07/18 16:25 Hct 39.9 % (42.0-52.0) L 01/07/18 16:25 MCV 90.7 fl (78-100) 01/07/18 16:25 MCH 30.7 pg (27-31) 01/07/18 16:25 MCHC 33.8 g/dl (32-36) 01/07/18 16:25 RDW 14.6 % (11.5-14.0) H 01/07/18 16:25 Plt Count 254 K/mm3 (150-450) 01/07/18 16:25 MPV 8.9 fl (8-11.3) 01/07/18 16:25 Immature Gran % (Auto) 0.20 % (0.001-0.429) 01/07/18 16:25 Immature Gran # (Auto) 0.01 K/mm3 (0.000-0.0310) 01/07/18 16:25 Neutrophils % 62.5 % (42-75.0) 01/07/18 16:25 Lymphocytes % 24.2 % (20-51) 01/07/18 16:25 Monocytes % 12.1 % (0.0-9) H 01/07/18 16:25 Eosinophils % 0.7 % (0.0-3.0) 01/07/18 16:25 Basophils % 0.3 % (0.0-1.0) 01/07/18 16:25 Nucleated RBC % 0.0 k/mm3 (0-1) 01/07/18 16:25 Neutrophils # 3.7 K/mm3 (1.3-6.0) 01/07/18 16:25 Lymphocytes # 1.44 k/mm3 (1.5-3.5) L 01/07/18 16:25 Monocytes # 0.7 k/mm3 (0.0-1.0) 01/07/18 16:25 Eosinophils # 0.0 k/mm3 (0.0-0.7) 01/07/18 16:25 Absolute Basophils 0.0 k/mm3 (0.0-0.1) 01/07/18 16:25 ESR 28 mm/hr (0-10) H 01/07/18 Unknown PT 10.9 Seconds (9.0-11.0) 01/07/18 16:25 INR (Anticoag Therapy) 1.09 INR (0.90-1.10) 01/07/18 16:25 PTT (Isaias) 24.7 Seconds (24-32) 01/07/18 16:25 Sodium 137 mmol/L (132-142) 01/07/18 16:25 Plasma Sodium 137 mmol/L (130-142) 01/07/18 16:25 Potassium 3.8 mmol/L (3.4-4.6) 01/07/18 16:25 Chloride 103 mmol/L (97-106) 01/07/18 16:25 Carbon Dioxide 25.5 mmol/L (24-32.6) 01/07/18 16:25 Anion Gap 12.3 mmol/L (6.8-13.8) 01/07/18 16:25 BUN 14 mg/dL (6-23) 01/07/18 16:25 Creatinine 1.04 mg/dL (0.4-1.4) 01/07/18 16:25 Est GFR (Non-Af Amer) 74 mL/min (60-130) 01/07/18 16:25 BUN/Creatinine Ratio 13.5 (9.0-21.6) 01/07/18 16:25 Random Glucose 93 mg/dL (70-110) 01/07/18 16:25 Calcium 9.7 mg/dL (7.9-10.9) 01/07/18 16:25 Calcium Adj for Albumin 9.6 mg/dL (8.4-10.2) 01/07/18 16:25 Total Bilirubin 0.3 mg/dL (0.0-1.1) 01/07/18 16:25 AST 21 U/L (0-48) 01/07/18 16:25 ALT 19 U/L (19-67) 01/07/18 16:25 Alkaline Phosphatase 112 U/L (50-170) 01/07/18 16:25 Total Protein 7.8 gm/dL (6.2-8.2) 01/07/18 16:25 Albumin 3.7 gm/dl (3.4-5.0) 01/07/18 16:25 Urine Color Yellow 01/07/18 Unknown Urine Appearance Clear (CLEAR) 01/07/18 Unknown Urine pH 5.5 pH (5.0-7.0) 01/07/18 Unknown Ur Specific [place] <=1.005 SP.GR. (1.005-1.030) 01/07/18 Unknown Urine Protein Negative mg/dL (NEGATIVE) 01/07/18 Unknown Urine Glucose (UA) Negative mg/dL (NEGATIVE) 01/07/18 Unknown Urine Ketones Negative mg/dL (NEGATIVE) 01/07/18 Unknown Urine Blood Negative /ul (NEGATIVE) 01/07/18 Unknown Urine Nitrate Negative (NEGATIVE) 01/07/18 Unknown Urine Bilirubin Negative mg/dl (NEGATIVE) 01/07/18 Unknown Urine Urobilinogen Normal EU/dl (NORMAL) 01/07/18 Unknown Ur Leukocyte Esterase Negative /ul (NEGATIVE) 01/07/18 Unknown Urine RBC None seen /hpf (0-5) 01/07/18 Unknown Urine WBC None seen /hpf (0-5) 01/07/18 Unknown Ur Epithelial Cells None seen /hpf (0-5) 01/07/18 Unknown Ur Squamous Epith Cells None seen /hpf (NONE) 01/07/18 Unknown Ur Transition Epith Cell None seen /hpf (NONE) 01/07/18 Unknown Urine Bacteria None seen (NONE) 01/07/18 Unknown Urine Culture Comments No culture indicated 01/07/18 Unknown Assessment/Plan - Assessment/Plan (1) CVA (cerebral vascular accident) Assessment: Pt presented with generalized weakness. Has a known hx of non compliance with medication regiment following admission for CVA. Head CT findings were as below: IMPRESSION: MILD TO MODERATE ATROPHY WITH MODERATE TO SEVERE WHITE MATTER MICROVASCULAR ISCHEMIC CHANGES NOT SIGNIFICANTLY CHANGED IN THE INTERVAL. NO ACUTE INTRACRANIAL PATHOLOGY OTHERWISE IDENTIFIED. May need additional imaging with Brain MRI, continue with Aspirin, Lisinopril and Artovastatin. Will involve PT to evaluate and may need continued rehabilitation/placement finding. Problem: Acute Qualifiers: CVA mechanism: unspecified Qualified Code(s): I63.9 - Cerebral infarction, unspecified (2) Generalized weakness Assessment: Plans as above: PT/OT & Rehab Problem: Acute (3) HTN (hypertension) Problem: Chronic Qualifiers: Hypertension type: essential hypertension Qualified Code(s): I10 - Essential (primary) hypertension (4) Depression Problem: Chronic (5) HLD (hyperlipidemia) Problem: Chronic (6) Poor compliance with medication Problem: Chronic
[2018-01-08] MEDS: ASPIRIN 325 MG TABLET.DR PO SCH (08:51)
[2018-01-08] MEDS: LISINOPRIL 10 MG TABLET PO SCH (08:51)
[2018-01-09] MEDS: LISINOPRIL 10 MG TABLET PO SCH (08:05)
[2018-01-09] MEDS: ASPIRIN 325 MG TABLET.DR PO SCH (08:05)
--- NOTE | 2018-01-09 12:28 | PN ---
Subjective - Date and Time Seen Date: 01/08/18 Time: 11:15 Subjective Narrative: Patient seen and examined at bedside. No acute issues overnight. Patient denies any new issues or concerns this AM. Objective - Review of Systems Generalized/Overall Review: Reports: Weakness, Fatigue Respiratory: Reports: No Symptoms Reported Cardiac: Reports: No Symptoms Reported Abdominal: Reports: No Symptoms Reported Genitourinary Symptoms: Reports: No Symptoms Reported Neurological: Reports: Weakness, Pre-existing Deficit Misc: All systems neg except as marked - Vitals Vitals: Last Vital Signs Temp 36.7 C 01/09/18 11:26 Pulse 67 01/09/18 11:26 Resp 16 01/09/18 11:26 BP 148/76 01/09/18 11:26 Pulse Ox 96 01/09/18 11:26 - Exam Constitutional: Present: Alert, Oriented x3, Cooperative, No distress, Elderly ENT Exam: Present: moist mucous membranes Respiratory: Present: lungs clear, normal breath sounds, no respiratory distress , no accessory muscle use Cardiovascular/Chest: Present: regular rate, rhythm, no edema Abdomen: Present: Normal bowel sounds, soft, nontender Extremity: Present: normal inspection, no pedal edema Skin Exam: Present: normal color, warm/dry Neurologic: Present: alert, normal mood/affect, oriented x 3, facial droop, motor weakness, sensory deficit Eye contact: Present: cooperative, good eye contact, other - speech difficulties with slow speech and intermittent expressive aphasia (unchanged from prior to admission) Thoughts: Present: normal thought pattern, no apparent hallucination Assessment/Plan Plan Narrative: Continue current cares including PT and OT evaluation and treatment. Patient is medically stable for discharge once arrangements have been made. Patient will need to go to a care center for ongoing therapies. - Problems/Diagnosis (1) Generalized weakness Problem: Acute (2) Ischemic stroke Problem: Chronic (3) Poor compliance with medication Problem: Chronic
--- NOTE | 2018-01-09 12:30 | DS ---
(1) Generalized weakness Diagnosis(s): Acute on Chronic Problem: Acute (2) Ischemic stroke Problem: Chronic (3) Poor compliance with medication Problem: Chronic Description of Stay: ADMISSION DATE: 01/07/2018 DISCHARGE DATE: 01/09/2018 ADMISSION HPI by LALI Sifuentes: Mr. Fuller is a 77-yr-old WM pt with a PMH of: BPH, CVA, Depression, HTN, HLD. Pt was brought to the ED by the EMS due to concerns by family/Niece that he may have had another stroke due to the weakness and inability to get up from his bed. Pt states that he was okay until yesterday (01/07) when he noticed that he was more weaker. Pt denies fevers, chill, n/v, diarrhea, abdominal pain , coughing and SOB. He also denies unilateral weakness. He has slurred speech but this was present in the previous admission on 11/13, when he presented with this finding and a head CT had shown concerns for Ischemia/Infarct. A follow- up with an MRI showed Acute Lacunar infarct on the RT side of the connie.He continued to have neurological deficits involving dysphagia, facial drooping and left upper and lower extremities. He was evaluated by the speech who recommended mechanical soft diet with thick nectar liquids. He was discharged to SNF for continued rehabilitation therapy and restarted on Atorvastatin 20mg daily, Lisinopril 10 mg daily & Aspirin 325 mg daily. Of -note, pt has had nonadherence to medication regimen following admission for CVA in October 2014. According to nikarissa, pt never filled the prescriptions of Aspirin Lisinopril & Crestor after discharge from the [facility] inpatient rehabilitation. Niece reported that he also did not take prescribed artovastatin following discharge from [facility] admission in 10/2017 and there is uncertainty of he was taking lisinopril and Aspirin as well. At the ED tonight, the labwork involving CBC, BMP, Troponins and UA were all unremarkable. The CXR did not have any acute cardiopulmonary findings. 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 He will be admitted under for further imaging, neurological and telemetry monitoring and to coordinate rehabilitation. HOSPITAL COURSE: The patient was admitted for generalized weakness and inability to adequately care for himself at home. The patient recently suffered a right connie lacunar infarct and continues to have deficits related to that stroke but there do not appear to be any new deficits on exam so I am not convinced the patient had another stroke. Rather, he likely has acute on chronic generalized weakness and pre-existing deficits that made him unable to care for himself at home. The patient remained stable during his admission and worked with PT and OT. He will be discharged to SNF at [facility] for ongoing therapies with the plan of hopefully eventually returning home. FOLLOW-UP APPOINTMENTS: -PCP, Dr. Nation, within 1-2 weeks NEW OR CHANGED MEDICATIONS: -None DISCONTINUED MEDICATIONS: -None Procedures Performed: none Results and Findings: Lab Pending Results 01/07/18 16:25: WBC 6.0, RBC 4.40 L, Hgb 13.5, Hct 39.9 L, MCV 90.7, MCH 30.7, MCHC 33.8, RDW 14.6 H, Plt Count 254, MPV 8.9, Immature Gran % (Auto) 0.20, Immature Gran # (Auto) 0.01, Neutrophils % 62.5, Lymphocytes % 24.2, Monocytes % 12.1 H, Eosinophils % 0.7, Basophils % 0.3, Nucleated RBC % 0.0, Neutrophils # 3.7, Lymphocytes # 1.44 L, Monocytes # 0.7, Eosinophils # 0.0, Absolute Basophils 0.0 01/07/18 16:25: PT 10.9, INR (Anticoag Therapy) 1.09, PTT (Isaias) 24.7 01/07/18 16:25: Sodium 137, Plasma Sodium 137, Potassium 3.8, Chloride 103, Carbon Dioxide 25.5, Anion Gap 12.3, BUN 14, Creatinine 1.04, Est GFR (Non-Af Amer) 74, BUN/Creatinine Ratio 13.5, Random Glucose 93, Calcium 9.7, Calcium Adj for Albumin 9.6, Total Bilirubin 0.3, AST 21, ALT 19, Alkaline Phosphatase 112, Total Protein 7.8, Albumin 3.7 01/07/18 : ESR 28 H 01/07/18 : Urine Color Yellow, Urine Appearance Clear, Urine pH 5.5, Ur Specific [place] <=1.005, Urine Protein Negative, Urine Glucose (UA) Negative, Urine Ketones Negative, Urine Blood Negative, Urine Nitrate Negative, Urine Bilirubin Negative, Urine Urobilinogen Normal, Ur Leukocyte Esterase Negative, Urine RBC None seen, Urine WBC None seen, Ur Epithelial Cells None seen, Ur Squamous Epith Cells None seen, Ur Transition Epith Cell None seen, Urine Bacteria None seen, Urine Culture Comments No culture indicated Discharge Location: [facility] Disposition: [facility] Condition: Stable Level of Care: SNF Discharge Activity: Activity as tolerated Discharge Diet: General/regular food Custodial Therapy: Physicial Therapy, Occupation Therapy Referrals: Halina Nation DO [Primary Care Provider] - Problem Oriented Discharge Instructions to Patient/Family: Weakness, Easy-to- Read, Hypertension, [id number] Additional Patient Instructions (free text): -Follow-up with Dr. Nation on 01/12/18 at 3:00pm. Complete Home Medications List: Complete Home Medication List: Aspirin [Aspirin Enteric Coated] 325 mg PO DAILY #30 tablet. 11/17/17 sertraline 50 mg tablet 50 mg PO DAILY #30 tab 12/22/17 Atorvastatin Calcium 20 mg PO HS 01/07/18 Lisinopril [Zestril] 10 mg PO BID 01/07/18
[2018-01-09 13:11] VITALS: BP 161/81
== END 2018-01-09 13:25 ==
LOC: MS 15:51 → ER 15:51 → MS 18:38
PROVIDERS: ADMIT Family Medicine; ATTEND Internal Medicine
DX: E78.5 Hyperlipidemia, unspecified; I10 Essential (primary) hypertension; I69.891 Dysphagia following other cerebrovascular disease; Z68.24 Body mass index [BMI] 24.0-24.9, adult; Z91.128 Patient's intentional underdosing of medication regimen for other reason; I69.354 Hemiplegia and hemiparesis following cerebral infarction affecting left non-dominant side; F32.9 Major depressive disorder, single episode, unspecified; N40.1 Benign prostatic hyperplasia with lower urinary tract symptoms; I67.82 Cerebral ischemia; N13.8 Other obstructive and reflux uropathy
CPT/HCPCS: 36415; 70450; 71010; 71045; 80053; 81001; 85025; 85610; 85652; 85730; 87081; 93005; 97116; 97162; 97165; 97530; 99284; G0378; G8978; G8979; G8980; G8987; G8988; G8989

== ENCOUNTER 2019-11-22 14:55 | Inpatient (IN) ==
[~2019-11-22 14:55] MED LIST: DEXTROSE 50%-WATER 50 ML SYRG IV ONE
[2019-11-22] MEDS ORDERED: ACETAMINOPHEN 1,000 MG/100 ML BTL IV ONE (15:18)
[2019-11-22 15:41] LABS: Hematocrit 37.8 % (42.0-52.0); Hemoglobin 12.2 gm/dL (13.5-18.0); Mean Cell Volume 85.3 fl (78-100); Mean Corpuscular Hemoglobin 27.5 pg (27-31); Mean Corpuscular Hgb Conc 32.3 g/dl (32-36); Mean Platelet Volume 9.1 fl (8-11.3); Neutrophil # 6.2 K/mm3 (1.3-6.0); Neutrophil % 72.8 % (42-75.0); Platelet Count 404 K/mm3 (150-450); Red Blood Count 4.43 M/mm3 (4.7-6.0); White Blood Count 8.5 K/mm3 (4.0-10.5)
[2019-11-22 16:04] LABS: ALT 30 U/L (19-67); AST 26 U/L (0-48); Albumin * 2.5 gm/dl (3.4-5.0); Alkaline Phosphatase * 90 U/L (50-170); Anion Gap 9.3 mmol/L (6.8-13.8); BUN/Creatinine Ratio 26.8 (9.0-21.6); Bilirubin, Total 0.4 mg/dL (0.0-1.1); Blood Urea Nitrogen 26 mg/dL (6-23); CRP 5.4 mg/dL (0.0-0.9); Ca. Corrected For Albumin 9.9 mg/dL (8.4-10.2); Carbon Dioxide 26.7 mmol/L (24-32.6); Chloride 102 mmol/L (97-106); Glucose * 173 mg/dL (70-110); Sodium 134 mmol/L (132-142); Total Protein 7.7 gm/dL (6.2-8.2)
[2019-11-22 16:05] LABS: Prothrombin Time (Patient) 11.4 Seconds (9.1-10.7); Troponin I Less than 0.017 ng/mL (0.00-0.10)
[2019-11-22 16:06] LABS: INR 1.16 INR (0.92-1.08)
[2019-11-22 16:45] LABS: Urine Bilirubin Negative (NEGATIVE); Urine Blood 25 /ul (NEGATIVE); Urine Ketone Negative (NEGATIVE); Urine Nitrite Negative (NEGATIVE); Urine Protein Negative (NEGATIVE); Urine Specific Gravity 1.015 SP.GR. (1.005-1.030); Urine Urobilinogen Normal (NORMAL)
[2019-11-22 17:09] LABS: Urine Appearance Clear (CLEAR); Urine Color Yellow
[2019-11-22 17:10] LABS: Urine Bacteria TRACE; Urine WBC None Seen /hpf (0-5)
[2019-11-22] MEDS ORDERED: cefTRIAXone SODIUM 1,000 MG/100 ML BAG IV ONE (17:54)
--- NOTE | 2019-11-22 18:38 | ERNOTE ---
Neuro HPI ER Record Date of Service: 11/22/19 Presenting Symptoms: weakness, impaired speech, confusion Time Seen by Provider: 11/22/19 15:03 Source: patient, EMS Exam Limitations: clinical condition, physical impairment Immunizations: IMMUNIZATION HX Immunizations Up to Date Yes History of Influenza Vaccine Yes Hx Pneumococcal Vaccination Yes Allergies/Adverse Reactions: Allergies Allergy/AdvReac Type Severity Reaction Status Date / Time poison sumac extract Allergy Unknown RASH Verified 11/22/19 15:09 Home Medications: HOME MEDICATIONS acetaminophen 325 mg tablet 650 mg PO Q4H PRN #60 tab 02/17/18 [Last Taken Unknown] aspirin 325 mg tablet,delayed release 325 mg PO DAILY #30 tablet. 02/17/18 [Last Taken Unknown] bisacodyl 5 mg tablet,delayed release 10 mg PO DAILY #60 tab 02/17/18 [Last Taken Unknown] - History of Present Illness Narrative: patient presents to ed with c/o a;lterrd state , ems reports chest pain, reported also by ems blood glucose of 50 no treatment prior to arrival Onset: cannot confirm onset Severity: moderate - Character of Deficits New weakness: Present: general (diffuse) Additional Deficits: Present: impaired speech, difficulty swallowing, decrease ability to stand, decrease ability to walk Baseline Cognition: Present: alert, oriented x 4, alert but disoriented to time Baseline Gait: Present: walks only w/ assistance Associated Symptoms: Reports: chest pain, altered mental status Prior Treament: Reports: recently seen, treated by physician, other - had cva recently treated at me Review of Systems - Narrative Narrative: baseline patient aphasic unable to obtain ros from patient - Review of Systems Constitutional: Present: See HPI, weakness, malaise EYE: Present: no symptoms reported ENT: Present: no symptoms reported Respiratory: Present: no symptoms reported Cardiology: Present: no symptoms reported Gastrointestinal/Abdominal: Present: no symptoms reported Genitourinary: Present: no symptoms reported Musculoskeletal: Present: no symptoms reported Skin: Present: no symptoms reported Neurological: Present: no symptoms reported Endocrine: Present: no symptoms reported Hematologic/Lymphatic: Present: no symptoms reported Psych: Present: no symptoms reported Medical History (Last Reviewed 11/22/19 @ 15:09 by Shari Escobar RN) Weakness due to cerebrovascular accident (Chronic) Generalized weakness (Acute) Hypertension (Chronic) Onset Date: Unknown not controlled Hyperlipidemia (Chronic) Onset Date: Unknown Hearing loss (Chronic) Onset Date: Unknown bilateral hearing aids Depression (Chronic) Onset Date: Unknown CVA (cerebral vascular accident) (Chronic) Onset Date: ~201711/11/2014, 2018 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) Onset Date: Unknown CVA (cerebral vascular accident) (Chronic) HTN (hypertension) (Chronic) Depression (Chronic) HLD (hyperlipidemia) (Chronic) Surgical History: Surgical History (Last Reviewed 11/22/19 @ 15:09 by Shari Escobar RN) Colonoscopy planned Onset Date: ~201008/13/2010 [place] normal History of cataract surgery Onset Date: ~2013 bilat Lipoma Onset Date: ~1973 removed Family History: Family History (Last Reviewed 11/22/19 @ 15:09 by Shari Escobar RN) Father , 57 Myocardial infarction Prostate disease Mother , 72 Cancer lung Glaucoma Social History: (Last Reviewed 11/22/19 @ 15:09 by Shari Escobar RN) Social History: Marital status: current occupational status: retired Service: Yes Tobacco: Smoking Status: Never smoker Alcohol: alcohol intake: current alcohol intake frequency: holiday/special occasion Dietary Habits: caffeine: Yes caffeine comment: 2 servings daily Type: coffee Physical Exam - Physical Exam General Appearance: Present: lethargic Head Exam: Present: normal inspection, no evidence of injury Eye Exam: Normal inspection: bilateral, PERRL: bilateral, EOMI: bilateral Ears, Nose, Throat: Present: normal ENT inspection, normal pharynx Neck: Present: normal inspection, nontender Respiratory: Present: no respiratory distress, normal breath sounds, no accessory muscle use, chest nontender, lungs clear Cardiovascular/Chest: Present: regular rate, rhythm, no murmur, normal peripheral pulses Gastrointestinal/Abdominal: Present: normal bowel sounds, nontender, nondistended, soft, no organomegaly Back Exam: Present: normal inspection, normal range of motion, no CVA tenderness, no vertebral tenderness Extremity Exam: Present: normal except - - contracture of upper left extremitiy Neurological Exam: Present: motor weakness, disoriented to person, disoriented to time, disoriented to place, disoriented to situation Progress - Date and Time Seen: Date and Time: 11/22/19 18:53 patient treated with d-50 upon arrival returns to baseline - Results and Orders Patient's Lab Results:: I have reviewed the patient's lab results. - Vital Signs Patient's Vital Signs:: I have reviewed the patient's vital signs. Vital Signs: Vital Signs 11/22/19 15:00 11/22/19 15:05 11/22/19 15:14 Temperature 38.8 C H Pulse Rate 92 119 H 84 Respiratory Rate 24 H Blood Pressure 173/78 H 173/78 H 159/69 H O2 Sat by Pulse Oximetry 97 98 99 11/22/19 15:16 11/22/19 15:29 11/22/19 16:05 Temperature 38.1 C H Pulse Rate 91 93 86 Respiratory Rate 20 20 Blood Pressure 159/69 H 144/70 126/75 O2 Sat by Pulse Oximetry 100 97 100 11/22/19 16:06 11/22/19 16:21 11/22/19 16:45 Temperature Pulse Rate 81 81 93 Respiratory Rate 21 H Blood Pressure 126/75 116/63 137/64 O2 Sat by Pulse Oximetry 100 100 98 11/22/19 16:51 11/22/19 17:06 11/22/19 17:21 Temperature Pulse Rate 72 75 71 Respiratory Rate 16 Blood Pressure 110/56 118/60 99/51 O2 Sat by Pulse Oximetry 97 - EKG EKG #1 EKG: NSR - X-Ray X-Ray #1 X-Ray: chest Interpretation: Discd w/ radiologist - lower left lobe pneumonia - CT/Ultrasound CT/Ultrasound Narrative: head no acute process - Progress/Reassessment Chief Complaint: Altered Mental Status Progress:: Improved - Transfer of Care Expected Disposition: Admit Plan - Plan Plan: case discussed with dr oakley to admit to hospital Departure Clinical Impression: Hypoglycemia, Pneumonia - Departure Disposition: Short Term Hospital Inpatient Condition: Serious
--- NOTE | 2019-11-22 21:28 | HP ---
Chief Complaint - Chief Complaint Date of Service: 11/22/19 Time of Service: 18:00 Chief Complaint: Weakness, confusion, impaired speech History of Present Illness: David is a 79-year-old male with known history of stroke with weakness, dysarthria, and dysphagia. He was noted by caretakers to be more confused, weak, and having difficulty with speech more than his usual. He had a fever of 38.8 on presentation to the emergency room. Evaluation showed a left lower lobe pneumonia. He has no leukocytosis. He was started on Rocephin 1 g IV. At the time of my examination the patient is alone in his room. He does understand questions well but has significant difficulty speaking with garbled speech and left-sided facial droop. He reports to me at this time that he has no concerns and nothing appears to him different than his usual. He denies cough, shortness of breath, or fever. He has 2 documented fevers in the emergency room. 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) Onset Date: Unknown CVA (cerebral vascular accident) (Chronic) HTN (hypertension) (Chronic) Depression (Chronic) HLD (hyperlipidemia) (Chronic) Surgical History: Surgical History (Last Reviewed 11/22/19 @ 21:22 by Oanh Eli RN) Colonoscopy planned Onset Date: ~201008/13/2010 [place] normal History of cataract surgery Onset Date: ~2013 bilat Lipoma Onset Date: ~1973 removed Family History: Family History (Last Reviewed 11/22/19 @ 21:22 by Oanh Eli RN) Father , 57 Myocardial infarction Prostate disease Mother , 72 Cancer lung Glaucoma Social History: (Last Reviewed 11/22/19 @ 21:22 by Oanh Eli RN) Social History: Marital status: current occupational status: retired Service: Yes Tobacco: Smoking Status: Never smoker Alcohol: alcohol intake: current alcohol intake frequency: holiday/special occasion Dietary Habits: caffeine: Yes caffeine comment: 2 servings daily Type: coffee Review Of Systems (GEN) - Review of Systems Additional Comments: Difficult due to patient condition, but he currently has no concerns. Immunizations: IMMUNIZATION HX Immunizations Up to Date Yes History of Influenza Vaccine Yes Hx Pneumococcal Vaccination Yes Allergies/Adverse Reactions: Allergies Allergy/AdvReac Type Severity Reaction Status Date / Time poison sumac extract Allergy Unknown RASH Verified 11/22/19 15:09 Home Medications: HOME MEDICATIONS acetaminophen 325 mg tablet 650 mg PO Q4H PRN #60 tab 02/17/18 [Last Taken Unknown] Aspirin [Aspirin Enteric Coated] 81 mg PO DAILY 11/22/19 [Last Taken Unknown] Atorvastatin Calcium 40 mg PO DAILY 11/22/19 [Last Taken Unknown] Lisinopril 5 mg PO DAILY 11/22/19 [Last Taken Unknown] Starch [Thick and Easy] 1 ea PO DAILY 11/22/19 [Last Taken Unknown] Exam - Exam Vital Signs: Vital Signs - Last Taken Temp 36.5 C 11/22/19 20:48 Pulse 69 11/22/19 20:48 Resp 15 11/22/19 20:48 BP 119/63 11/22/19 20:48 Pulse Ox 97 11/22/19 20:48 Constitutional: Present: Alert, Oriented x3, Cooperative ENT Exam: Present: hearing grossly normal Respiratory: Present: lungs clear, normal breath sounds, no respiratory distress Cardiovascular/Chest: Present: regular rate, rhythm, no murmur Peripheral Pulses: radial (R): 2+, radial (L): 2+ Abdomen: Present: Normal bowel sounds, soft, nontender, nondistended, no rebound tenderness Extremity: Present: other Skin Exam: Present: normal color, warm/dry, no cyanosis Neurologic: Present: facial droop - Left-sided, motor weakness - Diffuse motor weakness 3 out of 5 bilaterally upper extremity and lower extremity. Absent: sensory deficit Diagnostic Studies: Abnormal Lab Results 11/22/19 11/22/19 11/22/19 Range/Units 15:34 15:34 15:34 RBC 4.43 L (4.7-6.0) M/mm3 Hgb 12.2 L (13.5-18.0) gm/dL Hct 37.8 L (42.0-52.0) % RDW 16.0 H (11.5-14.0) % Lymphocytes % 16.7 L (20-51) % Neutrophils # 6.2 H (1.3-6.0) K/mm3 Lymphocytes # 1.42 L (1.5-3.5) k/mm3 PT (9.1-10.7) Seconds INR (Anticoag Therapy) (0.92-1.08) INR BUN 26 H (6-23) mg/dL BUN/Creatinine Ratio 26.8 H (9.0-21.6) Random Glucose 173 H (70-110) mg/dL C-Reactive Prot, Quant 5.4 H (0.0-0.9) mg/dL Albumin 2.5 L (3.4-5.0) gm/dl Procalcitonin Less than 0.05 L (0.05-0.50) ng/mL Urine Glucose (UA) (NEGATIVE) mg/dL Urine Blood (NEGATIVE) /ul Urine RBC (0-5) /hpf 11/22/19 11/22/19 Range/Units 15:34 16:30 RBC (4.7-6.0) M/mm3 Hgb (13.5-18.0) gm/dL Hct (42.0-52.0) % RDW (11.5-14.0) % Lymphocytes % (20-51) % Neutrophils # (1.3-6.0) K/mm3 Lymphocytes # (1.5-3.5) k/mm3 PT 11.4 H (9.1-10.7) Seconds INR (Anticoag Therapy) 1.16 H (0.92-1.08) INR BUN (6-23) mg/dL BUN/Creatinine Ratio (9.0-21.6) Random Glucose (70-110) mg/dL C-Reactive Prot, Quant (0.0-0.9) mg/dL Albumin (3.4-5.0) gm/dl Procalcitonin (0.05-0.50) ng/mL Urine Glucose (UA) 100 H (NEGATIVE) mg/dL Urine Blood 25 H (NEGATIVE) /ul Urine RBC 5-10 H (0-5) /hpf Laboratory Results WBC 8.5 K/mm3 (4.0-10.5) 11/22/19 15:34 RBC 4.43 M/mm3 (4.7-6.0) L 11/22/19 15:34 Hgb 12.2 gm/dL (13.5-18.0) L 11/22/19 15:34 Hct 37.8 % (42.0-52.0) L 11/22/19 15:34 MCV 85.3 fl (78-100) 11/22/19 15:34 MCH 27.5 pg (27-31) 11/22/19 15: MCHC 32.3 g/dl (32-36) 11/22/19 15:34 RDW 16.0 % (11.5-14.0) H 11/22/19 15:34 Plt Count 404 K/mm3 (150-450) 11/22/19: MPV 9.1 fl (8-11.3) 11/22/19 15:34 Immature Gran % (Auto) 0.40 % (0.001-0.429) 11/22/19: Immature Gran # (Auto) 0.03 K/mm3 (0.000-0.0310) 11/22/19 15:34 Neutrophils % 72.8 % (42-75.0) 11/22/19 15:34 Lymphocytes % 16.7 % (20-51) L 11/22/19 15:34 Monocytes % 8.5 % (0.0-9) 11/22/19:34 Eosinophils % 1.2 % (0.0-3.0) 11/22/19: Basophils % 0.4 % (0.0-1.0) 11/22/19:34 Nucleated RBC % 0.0 k/mm3 (0-1) 11/22/19 15:34 Neutrophils # 6.2 K/mm3 (1.3-6.0) H 11/22/19 15:34 Lymphocytes # 1.42 k/mm3 (1.5-3.5) L 11/22/19: Monocytes # 0.7 k/mm3 (0.0-1.0) 11/22/19: Eosinophils # 0.1 k/mm3 (0.0-0.7) 11/22/19:34 Absolute Basophils 0.0 k/mm3 (0.0-0.1) 11/22/19 15:34 PT 11.4 Seconds (9.1-10.7) H 11/22/19 15:34 INR (Anticoag Therapy) 1.16 INR (0.92-1.08) H 11/22/19 15:34 PTT (Isaias) 30.1 Seconds (24-32) 11/22/19 15:34 Sodium 134 mmol/L (132-142) 11/22/19 15:34 Plasma Sodium 135 mmol/L (130-142) 11/22/19 15:34 Potassium 4.0 mmol/L (3.4-4.6) 11/22/19 15:34 Chloride 102 mmol/L (97-106) 11/22/19 15:34 Carbon Dioxide 26.7 mmol/L (24-32.6) 11/22/19 15:34 Anion Gap 9.3 mmol/L (6.8-13.8) 11/22/19 15:34 BUN 26 mg/dL (6-23) H 11/22/19 15:34 Creatinine 0.97 mg/dL (0.4-1.4) 11/22/19 15:34 Est GFR (Non-Af Amer) 80 mL/min (60-130) 11/22/19 15:34 BUN/Creatinine Ratio 26.8 (9.0-21.6) H 11/22/19 15:34 Random Glucose 173 mg/dL (70-110) H 11/22/19 15:34 Lactic Acid, Venous 1.6 mmol/L (0.4-2.0) 11/22/19 15:34 Calcium 9.0 mg/dL (7.9-10.9) 11/22/19 15:34 Calcium Adj for Albumin 9.9 mg/dL (8.4-10.2) 11/22/19 15:34 Total Bilirubin 0.4 mg/dL (0.0-1.1) 11/22/19 15:34 AST 26 U/L (0-48) 11/22/19 15:34 ALT 30 U/L (19-67) 11/22/19 15:34 Alkaline Phosphatase 90 U/L (50-170) 11/22/19 15:34 Troponin I Less than 0.017 ng/mL (0.00-0.10) 11/22/19 15:34 C-Reactive Prot, Quant 5.4 mg/dL (0.0-0.9) H 11/22/19 15:34 Total Protein 7.7 gm/dL (6.2-8.2) 11/22/19 15:34 Albumin 2.5 gm/dl (3.4-5.0) L 11/22/19 15:34 Procalcitonin Less than 0.05 ng/mL (0.05-0.50) L 11/22/19 15:34 Urine Color Yellow 11/22/19 16:30 Urine Appearance Clear (CLEAR) 11/22/19 16:30 Urine pH 7.0 pH (5.0-7.0) 11/22/19 16:30 Ur Specific [place] 1.015 SP.GR. (1.005-1.030) 11/22/19 16:30 Urine Protein Negative mg/dL (NEGATIVE) 11/22/19 16:30 Urine Glucose (UA) 100 mg/dL (NEGATIVE) H 11/22/19 16:30 Urine Ketones Negative mg/dL (NEGATIVE) 11/22/19 16:30 Urine Blood 25 /ul (NEGATIVE) H 11/22/19 16:30 Urine Nitrate Negative (NEGATIVE) 11/22/19 16:30 Urine Bilirubin Negative mg/dl (NEGATIVE) 11/22/19 16:30 Urine Urobilinogen Normal EU/dl (NORMAL) 11/22/19 16:30 Ur Leukocyte Esterase Negative /ul (NEGATIVE) 11/22/19 16:30 Urine RBC 5-10 /hpf (0-5) H 11/22/19 16:30 Urine WBC None seen /hpf (0-5) 11/22/19 16:30 Ur Epithelial Cells None seen /hpf (0-5) 11/22/19 16:30 Urine Bacteria Trace (NONE) 11/22/19 16:30 Urine Culture Comments Culture to follow 11/22/19 16:30 SARS-CoV-2 (PCR) Not detected (ND) 11/22/19 19:10 Assessment/Plan - Narrative Narrative: David is a 79-year-old male with left lower lobe pneumonia. Based on his infusion, elevated BUN, and age of 79 he has 3 risk factors giving him a severe risk group with 14% 30-day all cause mortality. Due to this high risk it is recommended that he requires inpatient treatment. We will start IV Rocephin 1 g every 24 hours. Will consult physical therapy, Occupational Therapy, and speech therapy to evaluate his stroke. His stroke is chronic however it was reported by gift shop assistant to be significantly worse within the past 24 hours. He had a head CT which showed no acute changes. Will have various therapies evaluate David to see if he requires any further therapies beyond his baseline. He reports that he is currently on a soft mechanical diet. He tells me that he does not thicken his liquids to drink. Expect he will require greater than 2 midnights and therefore will admit him to inpatient status for IV antibiotics and therapies. - Assessment/Plan (1) Pneumonia Problem: Acute Qualifiers: Pneumonia type: due to unspecified organism Laterality: left Lung location: lower lobe of lung Qualified Code(s): J18.9 - Pneumonia, unspecified organism (2) Weakness due to cerebrovascular accident Problem: Chronic (3) CVA (cerebral vascular accident) Problem: Chronic Qualifiers: CVA mechanism: unspecified Qualified Code(s): I63.9 - Cerebral infarction, unspecified
[2019-11-23 09:32] LABS: Hematocrit 34.7 % (42.0-52.0); Hemoglobin 11.4 gm/dL (13.5-18.0); Mean Corpuscular Hemoglobin 27.9 pg (27-31); Mean Corpuscular Hgb Conc 32.9 g/dl (32-36); Mean Platelet Volume 8.9 fl (8-11.3); Neutrophil # 8.9 K/mm3 (1.3-6.0); Neutrophil % 79.7 % (42-75.0); Platelet Count 372 K/mm3 (150-450); Red Blood Count 4.08 M/mm3 (4.7-6.0); Red Cell Distribution Width 16.1 % (11.5-14.0); White Blood Count 11.2 K/mm3 (4.0-10.5)
[2019-11-23 09:59] LABS: Albumin * 2.3 gm/dl (3.4-5.0); Anion Gap 8.4 mmol/L (6.8-13.8); Bilirubin, Total 0.3 mg/dL (0.0-1.1); Carbon Dioxide 27.7 mmol/L (24-32.6); Potassium 4.1 mmol/L (3.4-4.6); Total Protein 7.1 gm/dL (6.2-8.2)
--- NOTE | 2019-11-23 23:01 | PN ---
Subjective - Date and Time Seen Date: 11/23/19 Time: 08:15 Subjective Narrative: David appears unchanged from yesterday, this may be his baseline. His speech is garbled but barely understand. He has no concerns. He denies shortness of breath and has no audible cough. He has not had fever since the ER. Objective - Vitals Vitals: Last Vital Signs Temp 37.1 C 11/23/19 14:00 Pulse 76 11/23/19 14:00 Resp 17 11/23/19 14:00 BP 135/76 11/23/19 14:00 Pulse Ox 95 11/23/19 14:00 - Abnormal Lab Findings Abnormal Lab Findings: Abnormal Lab Results 11/23/19 11/23/19 Range/Units 09:24 09:24 WBC 11.2 H D (4.0-10.5) K/mm3 RBC 4.08 L (4.7-6.0) M/mm3 Hgb 11.4 L (13.5-18.0) gm/dL Hct 34.7 L (42.0-52.0) % RDW 16.1 H (11.5-14.0) % Immature Gran % (Auto) 0.60 H (0.001-0.429) % Immature Gran # (Auto) 0.07 H (0.000-0.0310) K/mm3 Neutrophils % 79.7 H (42-75.0) % Lymphocytes % 11.0 L (20-51) % Neutrophils # 8.9 H (1.3-6.0) K/mm3 Lymphocytes # 1.24 L (1.5-3.5) k/mm3 BUN 26 H (6-23) mg/dL BUN/Creatinine Ratio 23.0 H (9.0-21.6) Albumin 2.3 L (3.4-5.0) gm/dl - Exam Constitutional: Present: Alert, Other - garbled speech, left facial droop Respiratory: Present: lungs clear, normal breath sounds, no respiratory distress Cardiovascular/Chest: Present: regular rate, rhythm, no murmur Abdomen: Present: Normal bowel sounds, soft, nontender, nondistended, no rebound tenderness Assessment/Plan Plan Narrative: Continue rocephin, improved temperature. Will evaluate with PT, OT, and ST to see if there is a change from his baseline. If he continues to go without fever he may be able to discharge tomorrow if also ok with therapies. 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
[2019-11-23] MEDS ORDERED: ACETAMINOPHEN 500 MG TABLET PO PRN (23:10)
[2019-11-24] MEDS ORDERED: ACETAMINOPHEN 325 MG TABLET PO PRN (08:28)
[2019-11-24 08:44] LABS: Hematocrit 34.3 % (42.0-52.0); Hemoglobin 11.2 gm/dL (13.5-18.0); Mean Cell Volume 86.2 fl (78-100); Mean Corpuscular Hemoglobin 28.1 pg (27-31); Mean Corpuscular Hgb Conc 32.7 g/dl (32-36); Mean Platelet Volume 8.9 fl (8-11.3); Neutrophil # 7.8 K/mm3 (1.3-6.0); Neutrophil % 70.6 % (42-75.0); Platelet Count 354 K/mm3 (150-450); Red Blood Count 3.98 M/mm3 (4.7-6.0); Red Cell Distribution Width 16.3 % (11.5-14.0); White Blood Count 11.1 K/mm3 (4.0-10.5)
[2019-11-24 08:56] LABS: Albumin * 2.1 gm/dl (3.4-5.0); Anion Gap 6.7 mmol/L (6.8-13.8); BUN/Creatinine Ratio 20.2 (9.0-21.6); Bilirubin, Total 0.2 mg/dL (0.0-1.1); Ca. Corrected For Albumin 9.8 mg/dL (8.4-10.2); Calcium * 8.6 mg/dL (7.9-10.9); Carbon Dioxide 29.9 mmol/L (24-32.6); Potassium 3.6 mmol/L (3.4-4.6)
[2019-11-24] MEDS ORDERED: ASPIRIN 325 MG TABLET.DR PO SCH (09:00)
[2019-11-24] MEDS: ASPIRIN 81 MG TABLET.DR PO SCH (09:21)
[2019-11-24] MEDS: LISINOPRIL 5 MG TABLET PO SCH (09:21)
[2019-11-24] MEDS ORDERED: ROSUVASTATIN CALCIUM 20 MG TABLET PO SCH (21:00)
--- NOTE | 2019-11-24 23:51 | PN ---
Subjective - Date and Time Seen Date: 11/24/19 Time: 08:30 Subjective Narrative: David does not converse much this morning. He had a fever this morning as well. Speech recommends thickening liquids due to choking. Denies cough, shortness of breath. Objective - Vitals Vitals: Last Vital Signs Temp 37.1 C 11/24/19 18:40 Pulse 73 11/24/19 18:40 Resp 20 11/24/19 18:40 BP 106/54 11/24/19 18:40 Pulse Ox 100 11/24/19 18:40 - Abnormal Lab Findings Abnormal Lab Findings: Abnormal Lab Results 11/24/19 11/24/19 Range/Units 08:35 08:35 WBC 11.1 H (4.0-10.5) K/mm3 RBC 3.98 L (4.7-6.0) M/mm3 Hgb 11.2 L (13.5-18.0) gm/dL Hct 34.3 L (42.0-52.0) % RDW 16.3 H (11.5-14.0) % Immature Gran % (Auto) 0.50 H (0.001-0.429) % Immature Gran # (Auto) 0.05 H (0.000-0.0310) K/mm3 Lymphocytes % 15.7 L (20-51) % Monocytes % 11.3 H (0.0-9) % Neutrophils # 7.8 H (1.3-6.0) K/mm3 Monocytes # 1.3 H (0.0-1.0) k/mm3 Anion Gap 6.7 L (6.8-13.8) mmol/L BUN 26 H (6-23) mg/dL Est GFR (Non-Af Amer) 57 L (60-130) mL/min Random Glucose 116 H (70-110) mg/dL Albumin 2.1 L (3.4-5.0) gm/dl - Exam Constitutional: Present: Alert Respiratory: Present: lungs clear, no respiratory distress Cardiovascular/Chest: Present: regular rate, rhythm, no edema, no murmur Abdomen: Present: Normal bowel sounds, soft, nontender, nondistended Neurologic: Present: alert, facial droop, motor weakness Assessment/Plan Plan Narrative: Continue antibiotics. Following recommendations from therapies. If he goes without fever for over 24 hours could consider discharge. 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
[2019-11-25 06:28] LABS: Hematocrit 32.3 % (42.0-52.0); Hemoglobin 10.6 gm/dL (13.5-18.0); Mean Cell Volume 85.2 fl (78-100); Mean Corpuscular Hgb Conc 32.8 g/dl (32-36); Mean Platelet Volume 9.2 fl (8-11.3); Neutrophil # 7.4 K/mm3 (1.3-6.0); Neutrophil % 68.7 % (42-75.0); Platelet Count 369 K/mm3 (150-450); Red Blood Count 3.79 M/mm3 (4.7-6.0); Red Cell Distribution Width 16.2 % (11.5-14.0); White Blood Count 10.8 K/mm3 (4.0-10.5)
[2019-11-25 06:45] LABS: Albumin * 1.9 gm/dl (3.4-5.0); Anion Gap 11.2 mmol/L (6.8-13.8); BUN/Creatinine Ratio 23.4 (9.0-21.6); Bilirubin, Total 0.3 mg/dL (0.0-1.1); Ca. Corrected For Albumin 10.3 mg/dL (8.4-10.2); Calcium * 8.9 mg/dL (7.9-10.9); Carbon Dioxide 25.5 mmol/L (24-32.6); Potassium 3.7 mmol/L (3.4-4.6); Total Protein 6.7 gm/dL (6.2-8.2)
[2019-11-25] MEDS: LISINOPRIL 5 MG TABLET PO SCH (08:50)
[2019-11-25] MEDS: ASPIRIN 81 MG TABLET.DR PO SCH (08:50)
--- NOTE | 2019-11-25 13:02 | DS ---
(1) Pneumonia Problem: Acute Qualifiers: Pneumonia type: due to unspecified organism Laterality: left Lung location: lower lobe of lung Qualified Code(s): J18.9 - Pneumonia, unspecified organism (2) Weakness due to cerebrovascular accident Problem: Chronic (3) CVA (cerebral vascular accident) Problem: Chronic Qualifiers: CVA mechanism: unspecified Qualified Code(s): I63.9 - Cerebral infarction, unspecified Date of Discharge:: 11/25/19 Hospital Course: David was admitted for left lower lobe pneumonia and treated with rocephin IV. He was initially having fever but over the last 24 hours these have resolved. His wbc has improved. He is having no respiratory symptoms. He has his chronic stroke which appears to be near his baseline. He will have mobile nursing with home PT, OT, and speech therapy. He will be on mechanical soft diet with nectar thickened liquids. He will complete his course of antibiotics with cefdinir 300mg PO BID x 7 more days. Procedures Performed: none Results and Findings: Pending Mircobiology Results 11/22/19 17:01 Blood Blood Culture - Preliminary NO GROWTH AFTER 48 HOURS 11/22/19 16:36 Blood Blood Culture - Preliminary NO GROWTH AFTER 48 HOURS Lab Pending Results 11/22/19 15:34: WBC 8.5, RBC 4.43 L, Hgb 12.2 L, Hct 37.8 L, MCV 85.3, MCH 27.5, MCHC 32.3, RDW 16.0 H, Plt Count 404, MPV 9.1, Immature Gran % (Auto) 0.40, Immature Gran # (Auto) 0.03, Neutrophils % 72.8, Lymphocytes % 16.7 L, Monocytes % 8.5, Eosinophils % 1.2, Basophils % 0.4, Nucleated RBC % 0.0, Neutrophils # 6.2 H, Lymphocytes # 1.42 L, Monocytes # 0.7, Eosinophils # 0.1, Absolute Basophils 0.0 11/22/19 15:34: Sodium 134, Plasma Sodium 135, Potassium 4.0, Chloride 102, Carbon Dioxide 26.7, Anion Gap 9.3, BUN 26 H, Creatinine 0.97, Est GFR (Non-Af Amer) 80, BUN/Creatinine Ratio 26.8 H, Random Glucose 173 H, Calcium 9.0, Calcium Adj for Albumin 9.9, Total Bilirubin 0.4, AST 26, ALT 30, Alkaline Phosphatase 90, Troponin I Less than 0.017, C-Reactive Prot, Quant 5.4 H, Total Protein 7.7, Albumin 2.5 L 11/22/19 15:34: Procalcitonin Less than 0.05 L 11/22/19 15:34: Lactic Acid, Venous 1.6 11/22/19 15:34: PT 11.4 H, INR (Anticoag Therapy) 1.16 H 11/22/19 15:34: PTT ([place]air) 30.1 11/22/19 16:30: Urine Color Yellow, Urine Appearance Clear, Urine pH 7.0, Ur Specific [place] 1.015, Urine Protein Negative, Urine Glucose (UA) 100 H, Urine Ketones Negative, Urine Blood 25 H, Urine Nitrate Negative, Urine Bilirubin Negative, Urine Urobilinogen Normal, Ur Leukocyte Esterase Negative, Urine RBC 5-10 H, Urine WBC None seen, Ur Epithelial Cells None seen, Urine Bacteria Trace, Urine Culture Comments Culture to follow 11/22/19 19:10: SARS-CoV-2 (PCR) Not detected 11/23/19 09:24: WBC 11.2 H D, RBC 4.08 L, Hgb 11.4 L, Hct 34.7 L, MCV 85.0, MCH 27.9, MCHC 32.9, RDW 16.1 H, Plt Count 372, MPV 8.9, Immature Gran % (Auto) 0.60 H, Immature Gran # (Auto) 0.07 H, Neutrophils % 79.7 H, Lymphocytes % 11.0 L, Monocytes % 7.9, Eosinophils % 0.4, Basophils % 0.4, Nucleated RBC % 0.0, Neutrophils # 8.9 H, Lymphocytes # 1.24 L, Monocytes # 0.9, Eosinophils # 0.1, Absolute Basophils 0.0 11/23/19 09:24: Sodium 135, Plasma Sodium 135, Potassium 4.1, Chloride 103, Carbon Dioxide 27.7, Anion Gap 8.4, BUN 26 H, Creatinine 1.13, Est GFR (Non-Af A marvin) 67, BUN/Creatinine Ratio 23.0 H, Random Glucose 104 D, Calcium 9.0, Calcium Adj for Albumin 10.0, Total Bilirubin 0.3, AST 21, ALT 24, Alkaline Phosphatase 84, Total Protein 7.1, Albumin 2.3 L 11/24/19 08:35: WBC 11.1 H, RBC 3.98 L, Hgb 11.2 L, Hct 34.3 L, MCV 86.2, MCH 28.1, MCHC 32.7, RDW 16.3 H, Plt Count 354, MPV 8.9, Immature Gran % (Auto) 0.50 H, Immature Gran # (Auto) 0.05 H, Neutrophils % 70.6, Lymphocytes % 15.7 L, Monocytes % 11.3 H, Eosinophils % 1.4, Basophils % 0.5, Nucleated RBC % 0.0, Neutrophils # 7.8 H, Lymphocytes # 1.73, Monocytes # 1.3 H, Eosinophils # 0.2, Absolute Basophils 0.1 11/24/19 08:35: Sodium 134, Plasma Sodium 134, Potassium 3.6, Chloride 101, Carbon Dioxide 29.9, Anion Gap 6.7 L, BUN 26 H, Creatinine 1.29, Est GFR (Non-Af Amer) 57 L, BUN/Creatinine Ratio 20.2, Random Glucose 116 H, Calcium 8.6, Calcium Adj for Albumin 9.8, Total Bilirubin 0.2, AST 28, ALT 23, Alkaline Phosphatase 83, Total Protein 7.0, Albumin 2.1 L 11/25/19 06:15: WBC 10.8 H, RBC 3.79 L, Hgb 10.6 L, Hct 32.3 L, MCV 85.2, MCH 28.0, MCHC 32.8, RDW 16.2 H, Plt Count 369, MPV 9.2, Immature Gran % (Auto) 0.60 H, Immature Gran # (Auto) 0.06 H, Neutrophils % 68.7, Lymphocytes % 17.5 L, Monocytes % 10.2 H, Eosinophils % 2.5, Basophils % 0.5, Nucleated RBC % 0.0, Neutrophils # 7.4 H, Lymphocytes # 1.89, Monocytes # 1.1 H, Eosinophils # 0.3, Absolute Basophils 0.1 11/25/19 06:15: Sodium 136, Plasma Sodium 136, Potassium 3.7, Chloride 103, Carbon Dioxide 25.5, Anion Gap 11.2, BUN 25 H, Creatinine 1.07, Est GFR (Non-Af Amer) 71 D, BUN/Creatinine Ratio 23.4 H, Random Glucose 92, Calcium 8.9, Calcium Adj for Albumin 10.3 H, Total Bilirubin 0.3, AST 30, ALT 24, Alkaline Phosphatase 71, Total Protein 6.7, Albumin 1.9 L Disposition: Home Health Service Home Health Agency: [facility] Condition: Stable Discharge Activity: Activity as tolerated Discharge Diet: General/regular food Referrals: [facility] [Non Staff Physicians] - Problem Oriented Discharge Instructions to Patient/Family: Community-Acquired Pneumonia, Adult, [id number] Additional Patient Instructions (free text): [facility], please call and fax discharge information to them. Will be a TCM follow up appointment. Home PT, OT, and ST. Prescriptions (Any new or edited meds): Cefdinir [Omnicef] 300 mg PO Q12H #14 cap Transmission Status: Pending to [facility] Complete Home Medications List: Complete Home Medication List: acetaminophen 325 mg tablet 650 mg PO Q4H PRN #60 tab 02/17/18 Aspirin [Aspirin Enteric Coated] 81 mg PO DAILY 11/22/19 Atorvastatin Calcium 40 mg PO DAILY 11/22/19 Lisinopril 5 mg PO DAILY 11/22/19 Starch [Thick and Easy] 1 ea PO DAILY 11/22/19 Cefdinir [Omnicef] 300 mg PO Q12H #14 cap 11/25/19 Forms: Patient Portal Registration
[2019-11-25 15:18] VITALS: BP 142/67
== END 2019-11-25 15:53 | disposition home health service (06) | DRG 195 ==
LOC: ER 14:55 → MS 18:45
PROVIDERS: ADMIT Family Medicine; ATTEND Family Medicine
CPT/HCPCS: 36415; 70450; 71010; 71045; 80053; 81001; 83605; 84145; 84484; 85025; 85610; 85730; 86140; 87040; 87086; 92507; 92610; 93005; 96365; 96367; 96375; 97162; 97166; 97530; 97535; 99285; J0131

== ENCOUNTER 2020-07-23 00:32 | Inpatient (IN) ==
[2020-07-23] MEDS ORDERED: NORMAL SALINE 1,000 ML IV ONE (01:08)
--- NOTE | 2020-07-23 01:14 | ERNOTE ---
Neuro HPI ER Record Time Seen by Provider: 07/23/20 00:52 Immunizations: IMMUNIZATION HX Immunizations Up to Date Yes History of Influenza Vaccine No Hx Pneumococcal Vaccination No Allergies/Adverse Reactions: Allergies Allergy/AdvReac Type Severity Reaction Status Date / Time poison sumac extract Allergy Unknown RASH Verified 11/22/19 15:09 Home Medications: HOME MEDICATIONS acetaminophen 325 mg tablet 650 mg PO Q4H PRN #60 tab 02/17/18 [Last Taken Unknown] Aspirin [Aspirin Enteric Coated] 81 mg PO DAILY 11/22/19 [Last Taken Unknown] Atorvastatin Calcium 40 mg PO DAILY 11/22/19 [Last Taken Unknown] Lisinopril 5 mg PO DAILY 11/22/19 [Last Taken Unknown] Starch [Thick and Easy] 1 ea PO DAILY 11/22/19 [Last Taken Unknown] sulfamethoxazole 800 mg-trimethoprim 160 mg tablet 1 tab PO BID #20 tab 06/01/20 [Last Taken Unknown] - History of Present Illness Narrative: 80-year-old male with failure to thrive history of stroke in the past now according to caregiver over the past couple of weeks has had a decline in mental status. Patient has no appetite and is difficult to get him to eat he is also a DO NOT RESUSCITATE. Patient approximately 3 weeks ago had a UTI was treated at that time. Of note patient with chronic left hand swelling and now with redness and skin breakdown, warmth to touch and some blistering. Review of Systems - Review of Systems Constitutional: Present: See HPI EYE: Present: no symptoms reported ENT: Present: no symptoms reported Respiratory: Present: See HPI Cardiology: Present: no symptoms reported Gastrointestinal/Abdominal: Present: See HPI Musculoskeletal: Present: other - Muscle wasting diffusely Skin: Present: See HPI, other - Some skin breakdown of the buttocks the left lumbar back as well as the left hand Neurological: Present: See HPI Psych: Present: no symptoms reported All Other Systems: All systems neg except as marked Medical History (Last Reviewed 07/23/20 @ 01:12 by Ernesto Burton MD) Weakness due to cerebrovascular accident (Chronic) Generalized weakness (Acute) Hypertension (Chronic) Onset Date: Unknown not controlled Hyperlipidemia (Chronic) Onset Date: Unknown Hearing loss (Chronic) Onset Date: Unknown bilateral hearing aids Depression (Chronic) Onset Date: Unknown CVA (cerebral vascular accident) (Chronic) Onset Date: ~201711/11/2014, 2018 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) Onset Date: Unknown CVA (cerebral vascular accident) (Chronic) HTN (hypertension) (Chronic) Depression (Chronic) HLD (hyperlipidemia) (Chronic) Surgical History: Surgical History (Last Reviewed 07/23/20 @ 01:12 by Ernesto Burton MD) Colonoscopy planned Onset Date: ~201008/13/2010 [place] normal History of cataract surgery Onset Date: ~2013 bilat Lipoma Onset Date: ~1973 removed Family History: Family History (Last Reviewed 07/23/20 @ 01:12 by Ernesto Burton MD) Father , 57 Myocardial infarction Prostate disease Mother , 72 Cancer lung Glaucoma Social History: (Last Reviewed 07/23/20 @ 01:12 by Ernesto Burton MD) Social History: Marital status: current occupational status: retired Service: Yes Tobacco: Smoking Status: Never smoker Alcohol: alcohol intake: current alcohol intake frequency: holiday/special occasion Dietary Habits: caffeine: Yes caffeine comment: 2 servings daily Type: coffee Physical Exam - Physical Exam General Appearance: Present: wd/wn, alert, other - Not following commands or verbally responding caregiver says this is typical over the past few weeks Head Exam: Present: normal inspection, no evidence of injury Ears, Nose, Throat: Present: other - Hearing aids in place Neck: Present: normal inspection, nontender Respiratory: Present: no respiratory distress, no accessory muscle use, chest nontender Cardiovascular/Chest: Present: regular rate, rhythm, normal peripheral pulses, tachycardia Gastrointestinal/Abdominal: Present: nontender, soft Back Exam: Present: no CVA tenderness, no vertebral tenderness, other - Patient with areas of pressure in the mid back Extremity Exam: Present: other - Muscle wasting and cachectic in appearance swelling of the left hand with blistering and some skin breakdown on the palmar surface erythema warmth tenderness no fluctuance mild induration Neurological Exam: Present: alert, other - Not responding to questions or following commands Skin Exam: Present: other - Breakdown back buttock left hip and left hand Progress - Date and Time Seen: Date and Time: 07/23/20 02:52 Patient remains with stable vital signs at this time we have reviewed the CT of the head which was finding of nothing acute in addition there are no fractures of the hand or air in the soft tissues that are obvious patient has a possible infiltrate in the right middle lobe at the lung. I discussed these findings with Dr. Gaviria who is on-call for medicine. Patient will be treated and admitted for left hand cellulitis and possible pneumonia with hypoxia requiring oxygen supplementation. Blood cultures have been sent and the patient has been given a dose of clindamycin and a dose of Rocephin. - Results and Orders Patient's Lab Results:: I have reviewed the patient's lab results. - Vital Signs Patient's Vital Signs:: I have reviewed the patient's vital signs. Vital Signs: Vital Signs 07/23/20 00:49 07/23/20 00:53 Temperature 37.5 C Pulse Rate 101 H 102 H Respiratory Rate 22 H Blood Pressure 147/77 O2 Sat by Pulse Oximetry 95 - Progress/Reassessment Chief Complaint: Altered Mental Status Progress:: Unchanged Plan - Plan Plan: Will admit for IV antibiotics and oxygen supplementation Departure Clinical Impression: Cellulitis of left hand Right middle lobe pneumonia Qualifiers: Pneumonia type: due to unspecified organism Qualified Code(s): J18.9 - Pneumonia, unspecified organism Altered mental status Qualifiers: Altered mental status type: unspecified Qualified Code(s): R41.82 - Altered mental status, unspecified - Departure Disposition: Short Term Hospital Inpatient Condition: Fair Referrals: Iban Aceves MD [Primary Care Provider] -
[2020-07-23] MEDS ORDERED: CLINDAMYCIN IN 0.9 % SOD CHLOR 600 MG/50 ML BAG IV SCH (01:15)
[2020-07-23 01:24] LABS: Hematocrit 40.5 % (42.0-52.0); Hemoglobin 13.2 gm/dL (13.5-18.0); Mean Corpuscular Hemoglobin 28.7 pg (27-31); Mean Corpuscular Hgb Conc 32.6 g/dl (32-36); Mean Platelet Volume 9.2 fl (8-11.3); Platelet Count 382 K/mm3 (150-450); White Blood Count 12.1 K/mm3 (4.0-10.5)
[2020-07-23 01:29] LABS: Total Cells Counted 100
[2020-07-23 01:42] LABS: Band 1 % (0-2.0); Immature Granulocyte 3 (0-1); Lymphocyte 2 % (20-51); Monocyte 5 % (0-9); Neutrophil 89 % (42-75); Neutrophil # 10.8 K/mm3 (1.3-6.0); Platelet Estimate Normal (NORMAL); RBC Morphology Normal (NORMAL)
[2020-07-23 01:50] LABS: Albumin * 2.1 gm/dl (3.4-5.0); Anion Gap 14.7 mmol/L (6.8-13.8); BUN/Creatinine Ratio 32.3 (9.0-21.6); Bilirubin, Total 0.6 mg/dL (0.0-1.1); Calcium * 8.8 mg/dL (7.9-10.9); Potassium 4.7 mmol/L (3.4-4.6)
[2020-07-23 01:55] LABS: Troponin I 0.031 ng/mL (0.00-0.10)
[2020-07-23 02:07] LABS: CRP 23.4 mg/dL (0.0-0.9)
[2020-07-23] MEDS ORDERED: PIPERACILLIN SODIUM/TAZOBACTAM 3.375 GM in DEXTROSE 5 % IN WATER 100 ML IV ONE ×2 (02:16)
[2020-07-23] MEDS ORDERED: cefTRIAXone SODIUM 1,000 MG/100 ML BAG IV ONE (02:26)
[2020-07-23 02:51] LABS: Urine Bilirubin Negative (NEGATIVE); Urine Blood Negative /ul (NEGATIVE); Urine Ketone Negative (NEGATIVE); Urine Nitrite Negative (NEGATIVE); Urine Protein 15 mg/dL (NEGATIVE); Urine Specific Gravity 1.025 SP.GR. (1.005-1.030); Urine Urobilinogen Normal (NORMAL); Urine pH 5.5 pH (5.0-7.0)
[2020-07-23 02:57] LABS: Urine Appearance Slightly Cloudy (CLEAR); Urine Color Yellow
[2020-07-23 02:58] LABS: Urine Amorphous Sediment Moderate - 2+ (NONE-FEW); Urine Bacteria None Seen; Urine RBC None Seen /hpf (0-5); Urine WBC 0-5 /hpf (0-5)
[2020-07-23] MEDS: NORMAL SALINE 1,000 ML IV PRN ×2 (11:37→21:57)
[2020-07-23] MEDS ORDERED: PIPERACILLIN SODIUM/TAZOBACTAM 2.25 GM VIAL IV SCH ×2 (12:00→12:15)
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
[2020-07-23] MEDS: MORPHINE SULFATE 4 MG/ML SYRG IV PRN ×2 (13:02→21:57)
[2020-07-23] MEDS: PIPERACILLIN SODIUM/TAZOBACTAM 2.25 GM in DEXTROSE 5 % IN WATER 100 ML IV SCH ×6 (13:04→23:36)
--- NOTE | 2020-07-23 13:13 | PN ---
Annamaria Note - Interim Date: 07/23/20 Time: 13:12 Narrative: 07/23/20 13:12 Patient will eventually be transferred to the [facility], but they do not have a bed for him just yet. They recommend continuing Vanc and Zosyn, and pain control, and covering his hand with Xeroform. They were given the phone number to the community marketing coordinator when they have an available bed.
[2020-07-23] MEDS: VANCOMYCIN/WATER FOR INJ (PEG) 1 GM/200 ML BAG IV SCH (14:25)
[2020-07-23] MEDS ORDERED: ENOXAPARIN SODIUM 40 MG/0.4 ML SYRG SC SCH (23:00)
[2020-07-24] MEDS: MORPHINE SULFATE 4 MG/ML SYRG IV PRN ×3 (02:52→09:59)
[2020-07-24] MEDS: PIPERACILLIN SODIUM/TAZOBACTAM 2.25 GM in DEXTROSE 5 % IN WATER 100 ML IV SCH ×2 (06:52)
[2020-07-24 07:30] LABS: Hematocrit 36.7 % (42.0-52.0); Hemoglobin 11.7 gm/dL (13.5-18.0); Mean Cell Volume 90.8 fl (78-100); Mean Corpuscular Hgb Conc 31.9 g/dl (32-36); Mean Platelet Volume 9.3 fl (8-11.3); Neutrophil % 81.5 % (42-75.0); Platelet Count 376 K/mm3 (150-450); Red Blood Count 4.04 M/mm3 (4.7-6.0); Red Cell Distribution Width 15.4 % (11.5-14.0); White Blood Count 14.7 K/mm3 (4.0-10.5)
[2020-07-24 08:19] LABS: Anion Gap 16.9 mmol/L (6.8-13.8); Calcium * 7.8 mg/dL (7.9-10.9); Carbon Dioxide 19.1 mmol/L (24-32.6); Estimated Creat Clear 49.8
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
[2020-07-24] MEDS ORDERED: SACCHAROMYCES BOULARDII 250 MG CAPSULE PO SCH (09:00)
[2020-07-24] MEDS: NORMAL SALINE 1,000 ML IV PRN (09:11)
[2020-07-24] MEDS: VANCOMYCIN/WATER FOR INJ (PEG) 1 GM/200 ML BAG IV SCH (12:57)
[2020-07-24] MEDS ORDERED: ACETAMINOPHEN 325 MG TABLET PO PRN (15:33)
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
[2020-07-24] MEDS ORDERED: PIPERACILLIN SODIUM/TAZOBACTAM 3.375 GM in DEXTROSE 5 % IN WATER 100 ML IV SCH ×2 (16:00)
[2020-07-24 18:40] VITALS: BP 135/66
[2020-07-24] MEDS ORDERED: ROSUVASTATIN CALCIUM 20 MG TABLET PO SCH (21:00)
[2020-07-25] MEDS ORDERED: ASPIRIN 81 MG TABLET.DR PO SCH (09:00)
[2020-07-25] MEDS ORDERED: LISINOPRIL 5 MG TABLET PO SCH (09:00)
== END 2020-07-24 18:28 | disposition short-term general hospital (02) | DRG 871 ==
LOC: ER 00:32 → MS 03:33
PROVIDERS: ADMIT Family Medicine; ATTEND Allergy & Immunology
DX: H91.93 Unspecified hearing loss, bilateral; Z86.73 Personal history of transient ischemic attack (TIA), and cerebral infarction without residual deficits; A40.8 Other streptococcal sepsis; T76.01XA Adult neglect or abandonment, suspected, initial encounter; N40.1 Benign prostatic hyperplasia with lower urinary tract symptoms; T23.352A Burn of third degree of left palm, initial encounter; R63.4 Abnormal weight loss; Z68.1 Body mass index [BMI] 19.9 or less, adult; I67.3 Progressive vascular leukoencephalopathy; J18.9 Pneumonia, unspecified organism; R53.1 Weakness; N13.8 Other obstructive and reflux uropathy; I10 Essential (primary) hypertension; R41.82 Altered mental status, unspecified; X08.8XXA Exposure to other specified smoke, fire and flames, initial encounter; R62.7 Adult failure to thrive